=== PATIENT | female | born 1955 | race Caucasian/White ===

== ENCOUNTER 2019-03-21 13:53 | Emergency (ER) | payer BC, SELFPAY ==
[2019-03-21 14:01] VITALS: BP 153/77; PULSE 64; RESP 18; TEMP 36.3; O2SAT 97; BMI 44.6
--- NOTE | 2019-03-21 14:04 | ED.ABDPAIN ---
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 She states that she has actually had right upper quadrant pain since her 10/13 TVH/BSO done under spinal anesthesia, she wakes up with it most days and might last 30-60 minutes, then seems to resolve on its own. She tends not to have pain at other times of day, no exacerbating or alleviating features that she can think of such as what she eats the night before. She states that today is ?different?, with more of a tearing, burning pain across the midline and below the umbilicus. She states she also has radiating pain into her right flank/low back area that is more dull. She describes pain today is constant, but is worse with some movements or going over bumps in the car. She has not had any nausea or vomiting. She denies fever. She denies any bowel habit changes (chronic constipation alternating with diarrhea). She denies any new hematuria or urinary symptoms. She denies any chest pain, dyspnea, or new pain or swelling in her extremities, or other complaints on systems review. Related Data Home Medications Medication Instructions Recorded Confirmed levothyroxine 200 mcg PO QAM #0 08/22/16 03/21/19 Allergies Allergy/AdvReac Type Severity Reaction Status Date / Time clarithromycin [From BIAXIN] Allergy Mild Unverified 01/03/18 12:39 amoxicillin [From AUGMENTIN] Allergy Unknown Unverified 01/03/18 12:39 clavulanic acid Allergy Unknown Unverified 01/03/18 12:39 [From AUGMENTIN] Review of Systems <Rebecca Brothers PA-C - Last Filed: 03/21/19 20:34> Review of Systems ROS Unobtainable: All systems reviewed & are unremarkable except as noted in HPI and below PFSH <Rebecca Brothers PA-C - Last Filed: 03/21/19 20:34> Medical History (Updated 03/21/19 @ 17:25 by Rebecca Brothers PA-C) Allergy-induced asthma (Chronic) Chronic RUQ pain (Chronic) Edema of lower extremity due to peripheral venous insufficiency (Chronic) Hypothyroidism (Chronic) Incontinence (Chronic) Surgical History (Updated 03/21/19 @ 15:05 by Rebecca Brothers PA-C) History of neck surgery (Chronic) Status post NYLA-BSO (Chronic) Social History Smoking Status: Never smoker Social History Smoking Status: Never smoker Comment: rare ETOH Exam <Rebecca Brothers PA-C - Last Filed: 03/21/19 20:34> Narrative Exam Narrative: GENERAL APPEARANCE: Patient sitting comfortably, in no distress. HEENT: PERRL, EOMI, no scleral icterus, conjunctivae pink, normal oropharynx NECK: Supple, generous thyroid LUNGS: Clear to auscultation bilaterally. HEART: Rate and rhythm regular, normal S1 and S2, no S3 or S4. ABDOMEN: Soft, nondistended, bowel sounds present x 4 quadrants, no masses palpable, no hepatosplenomegaly, no CVAT. Moderate right upper quadrant tenderness and moderate tenderness across the midline. She also has some right lateral lower quadrant tenderness without guarding or rebound. Negative Sequeira sign EXTREMITIES: Trace pitting edema, no calf tenderness DERMATOLOGIC: No jaundice or exanthem NEUROLOGIC: Alert and oriented with normal speech and coordination Initial Vital Signs Initial Vital Signs: Vital Signs Temperature 97.4 F L 03/21/19 14:01 Pulse Rate 64 03/21/19 14:01 Respiratory Rate 18 03/21/19 14:01 Blood Pressure 153/77 H 03/21/19 14:01 Pulse Oximetry 97 03/21/19 14:01 <Juanita Oconnell DO - Last Filed: 03/22/19 08:19> Initial Vital Signs Initial Vital Signs: Vital Signs Temperature 97.4 F L 03/21/19 14:01 Pulse Rate 64 03/21/19 14:01 Respiratory Rate 18 03/21/19 14:01 Blood Pressure 153/77 H 03/21/19 14:01 Pulse Oximetry 97 03/21/19 14:01 Course <MARY ALICE Zhang Last Filed: 03/21/19 20:34> Additional Information: following consultation with Dr. Anderson invoice control clerk surgeon who reviewed CT scan, agrees no evidence of acute diverticulitis or perforation. Reviewed with radiology and report was addended. Reviewed findings with patient. Advised follow-up with PCP preferably tomorrow, and return if any acute changes or new symptoms such as fever or vomiting. She is agreeable. Discussed surgeon recommendation of possible further workup i.e. with HIDA scan, and encouraged to pursue with PCP for chronic pain. Orders Ordered: Discontinued Medications Diphenhydramine HCl (Benadryl) 25 mg IV NOW ONE Stop: 03/21/19 14:27 Last Admin: 03/21/19 14:50 Dose: 25 mg Sodium Chloride (Normal Saline 0.9%) 1,000 mls @ 1,000 mls/hr IV BOLUS ONE Stop: 03/21/19 15:25 Last Infusion: 03/21/19 16:30 Dose: 0 mls/hr Admin: 03/21/19 14:48 Dose: 1,000 mls/hr Vital Signs - 8 hr 03/21/19 14:01 03/21/19 15:51 03/21/19 16:33 Temperature 97.4 F L 97.4 F L Pulse Rate 64 66 75 Respiratory Rate 18 15 18 Blood Pressure 153/77 H Blood Pressure [Right Arm] 153/76 H 175/79 H Pulse Oximetry 97 100 100 <Juanita Oconnell DO - Last Filed: 03/22/19 08:19> Orders Ordered: Discontinued Medications Diphenhydramine HCl (Benadryl) 25 mg IV NOW ONE Stop: 03/21/19 14:27 Last Admin: 03/21/19 14:50 Dose: 25 mg Sodium Chloride (Normal Saline 0.9%) 1,000 mls @ 1,000 mls/hr IV BOLUS ONE Stop: 03/21/19 15:25 Last Infusion: 03/21/19 16:30 Dose: 0 mls/hr Admin: 03/21/19 14:48 Dose: 1,000 mls/hr Vital Signs - 8 hr 03/21/19 14:01 03/21/19 15:51 03/21/19 16:33 Temperature 97.4 F L 97.4 F L Pulse Rate 64 66 75 Respiratory Rate 18 15 18 Blood Pressure 153/77 H Blood Pressure [Right Arm] 153/76 H 175/79 H Pulse Oximetry 97 100 100 MDM - Abdominal Pain <Rebecca Brothers PA-C - Last Filed: 03/21/19 20:34> Lab Data Attestation: I reviewed the patient's lab results. Result diagrams: 03/21/19 14:45 03/21/19 14:45 Lab Results 03/21/19 03/21/19 03/21/19 Range/Units 14:45 14:45 14:45 WBC 10.1 (4.5-11.0) X10^3/uL RBC 4.60 (4.0-5.2) X10^6/uL Hgb 13.3 (12.0-16.0) g/dL Hct 39.4 (36-46) % MCV 85.7 (80-100) fL MCH 28.8 (26-34) PG MCHC 33.6 (30-36) % RDW 13.6 (11.6-14.8) % Plt Count 246 (150-400) X10^3/uL Neut % (Auto) 72.2 (50-75) % Lymph % (Auto) 18.4 L (25-40) % Harlan % (Auto) 6.8 (3-14) % Eos % (Auto) 2.0 (2-4) % Baso % (Auto) 0.6 (0-2) % Neut # (Auto) 7300 H (6216-0244) /uL Lymph # (Auto) 1900 (1277-5193) /uL Harlan # (Auto) 700 (0-900) /uL Eos # (Auto) 200 (0-450) /uL Baso # (Auto) 100 (0-100) /uL Sodium 145 (137-145) mmol/L Potassium 3.9 (3.4-5.1) mmol/L Chloride 106 (98-107) mmol/L Carbon Dioxide 28 (22-32) mmol/L BUN 18 H (7-17) mg/dL Creatinine 0.60 (0.52-1.04) mg/dL Estimated GFR > 60.0 (>60) mL/min BUN/Creatinine Ratio 30.0 H (6-22) Glucose 88 (80-110) mg/dL Lactate 0.7 (0.7-2.1) mmol/L Calcium 9.1 (8.4-10.2) mg/dL Total Bilirubin 0.4 (0.2-1.3) mg/dL AST 25 (14-36) IU/L ALT 30 (9-52) IU/L Alkaline Phosphatase 108 (38-126) U/L Total Protein 7.7 (6.3-8.2) g/dL Albumin 4.3 (3.5-5.0) g/dL Globulin 3.4 (1.7-4.1) g/dL Albumin/Globulin Ratio 1.3 (1.0-2.8) Lipase 66 (23-300) U/L Urine Color Urine Appearance Urine pH (4.5-8.0) Ur Specific [place] (1.000-1.035) Urine Protein (Negative) Urine Glucose (UA) (Negative) g/dL Urine Ketones (NEGATIVE) Urine Occult Blood (Negative) Urine Nitrate (Negative) Urine Bilirubin (NEGATIVE) Urine Urobilinogen (0.2) E.U./dL Ur Leukocyte Esterase (NEGATIVE) Urine RBC (0-5/HPF) Urine WBC (0-5/HPF) Ur Squamous Epith Cells (0-5/HPF) Amorphous Sediment Urine Bacteria (None) Urine Mucus (Negative) Ur Culture Indicated? 03/21/19 Range/Units 14:57 WBC (4.5-11.0) X10^3/uL RBC (4.0-5.2) X10^6/uL Hgb (12.0-16.0) g/dL Hct (36-46) % MCV (80-100) fL MCH (26-34) PG MCHC (30-36) % RDW (11.6-14.8) % Plt Count (150-400) X10^3/uL Neut % (Auto) (50-75) % Lymph % (Auto) (25-40) % Harlan % (Auto) (3-14) % Eos % (Auto) (2-4) % Baso % (Auto) (0-2) % Neut # (Auto) (8580-4974) /uL Lymph # (Auto) (2486-9809) /uL Harlan # (Auto) (0-900) /uL Eos # (Auto) (0-450) /uL Baso # (Auto) (0-100) /uL Sodium (137-145) mmol/L Potassium (3.4-5.1) mmol/L Chloride (98-107) mmol/L Carbon Dioxide (22-32) mmol/L BUN (7-17) mg/dL Creatinine (0.52-1.04) mg/dL Estimated GFR (>60) mL/min BUN/Creatinine Ratio (6-22) Glucose (80-110) mg/dL Lactate (0.7-2.1) mmol/L Calcium (8.4-10.2) mg/dL Total Bilirubin (0.2-1.3) mg/dL AST (14-36) IU/L ALT (9-52) IU/L Alkaline Phosphatase (38-126) U/L Total Protein (6.3-8.2) g/dL Albumin (3.5-5.0) g/dL Globulin (1.7-4.1) g/dL Albumin/Globulin Ratio (1.0-2.8) Lipase (23-300) U/L Urine Color Yellow Urine Appearance Clear Urine pH 6.5 (4.5-8.0) Ur Specific [place] 1.025 (1.000-1.035) Urine Protein Negative (Negative) Urine Glucose (UA) Negative (Negative) g/dL Urine Ketones Negative (NEGATIVE) Urine Occult Blood Negative (Negative) Urine Nitrate Negative (Negative) Urine Bilirubin Negative (NEGATIVE) Urine Urobilinogen 0.2 (0.2) E.U./dL Ur Leukocyte Esterase Negative (NEGATIVE) Urine RBC None seen (0-5/HPF) Urine WBC 1-5/hpf (0-5/HPF) Ur Squamous Epith Cells 5-10 /hpf H (0-5/HPF) Amorphous Sediment 1+ Urine Bacteria Few (2-10) H (None) Urine Mucus 1+ H (Negative) Ur Culture Indicated? Cult not indicated Imaging Data CT scan - abdomen: Radiologist's impression: [address] [address] [address] Scan Report Signed Patient: Jory Isaacs LMR#: [id number] : 3Acct:[id number] Age/Sex: 63 / FDate of Service: 03/21/19 Loc: ED Accession Number: [id number] Procedure: CT abdomen pelvis w con Ordering Provider: Rebecca Brothers P.A-C PROCEDURE: CT ABDOMEN PELVIS W CON INDICATIONS: R. flank,midline pain TECHNIQUE: After the administration of intravenous contrast, 5 mm thick sections acquired from the diaphragm to the symphysis. 5 mm coronal and sagittal reformats were acquired. For radiation dose reduction, the following was used: automated exposure control, adjustment of mA and/or kV according to patient size. COMPARISON: None. FINDINGS: Image quality: Excellent. ABDOMEN: Lung bases: Atelectasis noted in the dependent portion of the lungs. 7 mm subpleural nodule noted in the right lung base. Right lung base nodule has a flattened margin where it abuts the right lung fissure. 5 mm calcified granuloma noted in the left lung base. Heart size is normal. Solid organs: Liver is normal in size and enhancement. Gallbladder is within normal limits. Biliary system is non dilated. Pancreas enhances normally. Spleen is normal in size and enhancement. No adrenal nodules. Kidneys demonstrate normal size and enhancement, without hydronephrosis. Peritoneum and bowel: Bowel loops demonstrate normal wall thickness and caliber. Scattered diverticuli noted in the left and sigmoid colon. Mild inflammatory changes noted adjacent to diverticuli in the distal left colon compatible with diverticulitis. No peridiverticular abscess. Small locule of free air are noted adjacent to the distal left colon the region of diverticulitis. The appendix is not definitely visualized, however no free fluid or inflammatory changes are noted adjacent to the cecum. Nodes and vessels: No retroperitoneal or mesenteric adenopathy by size criteria. Aorta and inferior vena cava are normal in size. Miscellaneous: Small fat-containing umbilical hernia. PELVIS: Genitourinary: Bladder wall thickness is normal. Uterus is surgically absent. Miscellaneous: No inguinal hernias or adenopathy. Bones: No suspicious bony lesions. No vertebral body compression fractures. IMPRESSION: 1. Distal left colon diverticulitis. Small free air locule is noted in the region of diverticulitis compatible with diverticular microperforation. 2. No renal stone or hydronephrosis. 3. No dilated loops of bowel. 4. No free intraperitoneal fluid. 5. 7 mm nodule in the right lung base which has imaging characteristics most compatible with perifissural lymph node. Dictated by: Serina Niño MD, PhD on 03/21/2019 at 15:58 Approved by: Serina Niño MD, PhD on 03/21/2019 at 16:09 <Juanita Oconnell DO - Last Filed: 03/22/19 08:19> Lab Data Lab Results 03/21/19 03/21/19 03/21/19 Range/Units 14:45 14:45 14:45 WBC 10.1 (4.5-11.0) X10^3/uL RBC 4.60 (4.0-5.2) X10^6/uL Hgb 13.3 (12.0-16.0) g/dL Hct 39.4 (36-46) % MCV 85.7 (80-100) fL MCH 28.8 (26-34) PG MCHC 33.6 (30-36) % RDW 13.6 (11.6-14.8) % Plt Count 246 (150-400) X10^3/uL Neut % (Auto) 72.2 (50-75) % Lymph % (Auto) 18.4 L (25-40) % Harlan % (Auto) 6.8 (3-14) % Eos % (Auto) 2.0 (2-4) % Baso % (Auto) 0.6 (0-2) % Neut # (Auto) 7300 H (0394-5554) /uL Lymph # (Auto) 1900 (9694-6897) /uL Harlan # (Auto) 700 (0-900) /uL Eos # (Auto) 200 (0-450) /uL Baso # (Auto) 100 (0-100) /uL Sodium 145 (137-145) mmol/L Potassium 3.9 (3.4-5.1) mmol/L Chloride 106 (98-107) mmol/L Carbon Dioxide 28 (22-32) mmol/L BUN 18 H (7-17) mg/dL Creatinine 0.60 (0.52-1.04) mg/dL Estimated GFR > 60.0 (>60) mL/min BUN/Creatinine Ratio 30.0 H (6-22) Glucose 88 (80-110) mg/dL Lactate 0.7 (0.7-2.1) mmol/L Calcium 9.1 (8.4-10.2) mg/dL Total Bilirubin 0.4 (0.2-1.3) mg/dL AST 25 (14-36) IU/L ALT 30 (9-52) IU/L Alkaline Phosphatase 108 (38-126) U/L Total Protein 7.7 (6.3-8.2) g/dL Albumin 4.3 (3.5-5.0) g/dL Globulin 3.4 (1.7-4.1) g/dL Albumin/Globulin Ratio 1.3 (1.0-2.8) Lipase 66 (23-300) U/L Urine Color Urine Appearance Urine pH (4.5-8.0) Ur Specific [place] (1.000-1.035) Urine Protein (Negative) Urine Glucose (UA) (Negative) g/dL Urine Ketones (NEGATIVE) Urine Occult Blood (Negative) Urine Nitrate (Negative) Urine Bilirubin (NEGATIVE) Urine Urobilinogen (0.2) E.U./dL Ur Leukocyte Esterase (NEGATIVE) Urine RBC (0-5/HPF) Urine WBC (0-5/HPF) Ur Squamous Epith Cells (0-5/HPF) Amorphous Sediment Urine Bacteria (None) Urine Mucus (Negative) Ur Culture Indicated? 03/21/19 Range/Units 14:57 WBC (4.5-11.0) X10^3/uL RBC (4.0-5.2) X10^6/uL Hgb (12.0-16.0) g/dL Hct (36-46) % MCV (80-100) fL MCH (26-34) PG MCHC (30-36) % RDW (11.6-14.8) % Plt Count (150-400) X10^3/uL Neut % (Auto) (50-75) % Lymph % (Auto) (25-40) % Harlan % (Auto) (3-14) % Eos % (Auto) (2-4) % Baso % (Auto) (0-2) % Neut # (Auto) (7323-3052) /uL Lymph # (Auto) (0193-9810) /uL Harlan # (Auto) (0-900) /uL Eos # (Auto) (0-450) /uL Baso # (Auto) (0-100) /uL Sodium (137-145) mmol/L Potassium (3.4-5.1) mmol/L Chloride (98-107) mmol/L Carbon Dioxide (22-32) mmol/L BUN (7-17) mg/dL Creatinine (0.52-1.04) mg/dL Estimated GFR (>60) mL/min BUN/Creatinine Ratio (6-22) Glucose (80-110) mg/dL Lactate (0.7-2.1) mmol/L Calcium (8.4-10.2) mg/dL Total Bilirubin (0.2-1.3) mg/dL AST (14-36) IU/L ALT (9-52) IU/L Alkaline Phosphatase (38-126) U/L Total Protein (6.3-8.2) g/dL Albumin (3.5-5.0) g/dL Globulin (1.7-4.1) g/dL Albumin/Globulin Ratio (1.0-2.8) Lipase (23-300) U/L Urine Color Yellow Urine Appearance Clear Urine pH 6.5 (4.5-8.0) Ur Specific [place] 1.025 (1.000-1.035) Urine Protein Negative (Negative) Urine Glucose (UA) Negative (Negative) g/dL Urine Ketones Negative (NEGATIVE) Urine Occult Blood Negative (Negative) Urine Nitrate Negative (Negative) Urine Bilirubin Negative (NEGATIVE) Urine Urobilinogen 0.2 (0.2) E.U./dL Ur Leukocyte Esterase Negative (NEGATIVE) Urine RBC None seen (0-5/HPF) Urine WBC 1-5/hpf (0-5/HPF) Ur Squamous Epith Cells 5-10 /hpf H (0-5/HPF) Amorphous Sediment 1+ Urine Bacteria Few (2-10) H (None) Urine Mucus 1+ H (Negative) Ur Culture Indicated? Cult not indicated Discharge Plan Departure Patient Disposition: Home Clinical Impression: Right sided abdominal pain Discharge Date/Time: 03/21/19 17:43 Interventions: ED Discharge Assessment Last Done: 03/21/19 17:43 Instructions: DI for Abdominal Pain-Adult Activity Restrictions/Additional Instructions: There was no acute problem found on your lab testing or scan today to explain your chronic pain or the changes in it that you have observed today. Please schedule follow-up with your PCP to reassess (preferably tomorrow), and also to discuss further workup for your chronic pain. Please return to ED as we talked about if you have any acutely worsening pain or new symptoms such as vomiting or fever. Please try ibuprofen at least for the next day or 2 to see if this is helpful. Prescriptions: No Action levothyroxine 200 MCG tablet 200 mcg PO QAM Qty: 0 RF: 0 Referrals: Mehul Grayson DO [Non-Staff] - <Juanita Oconnell DO - Last Filed: 03/22/19 08:19> Cosign ED Attending Burton Attestation: I was immediately available in the department for consultation. Documentation has been reviewed. I agree with assessment and plan.
--- NOTE | 2019-03-21 14:26 | DI.CT.S_ITS ---
PROCEDURE: CT ABDOMEN PELVIS W CON INDICATIONS: R. flank,midline pain TECHNIQUE: After the administration of intravenous contrast, 5 mm thick sections acquired from the diaphragm to the symphysis. 5 mm coronal and sagittal reformats were acquired. For radiation dose reduction, the following was used: automated exposure control, adjustment of mA and/or kV according to patient size. COMPARISON: None. FINDINGS: Image quality: Excellent. ABDOMEN: Lung bases: Atelectasis noted in the dependent portion of the lungs. 7 mm subpleural nodule noted in the right lung base. Right lung base nodule has a flattened margin where it abuts the right lung fissure. 5 mm calcified granuloma noted in the left lung base. Heart size is normal. Solid organs: Liver is normal in size and enhancement. Gallbladder is within normal limits. Biliary system is non dilated. Pancreas enhances normally. Spleen is normal in size and enhancement. No adrenal nodules. Kidneys demonstrate normal size and enhancement, without hydronephrosis. Peritoneum and bowel: Bowel loops demonstrate normal wall thickness and caliber. Scattered diverticuli noted in the left and sigmoid colon. Mild inflammatory changes noted adjacent to diverticuli in the distal left colon compatible with diverticulitis. No peridiverticular abscess. Small locule of free air are noted adjacent to the distal left colon the region of diverticulitis. The appendix is not definitely visualized, however no free fluid or inflammatory changes are noted adjacent to the cecum. Nodes and vessels: No retroperitoneal or mesenteric adenopathy by size criteria. Aorta and inferior vena cava are normal in size. Miscellaneous: Small fat-containing umbilical hernia. PELVIS: Genitourinary: Bladder wall thickness is normal. Uterus is surgically absent. Miscellaneous: No inguinal hernias or adenopathy. Bones: No suspicious bony lesions. No vertebral body compression fractures. IMPRESSION: 1. Distal left colon diverticulitis. Small free air locule is noted in the region of diverticulitis compatible with diverticular microperforation. 2. No renal stone or hydronephrosis. 3. No dilated loops of bowel. 4. No free intraperitoneal fluid. 5. 7 mm nodule in the right lung base which has imaging characteristics most compatible with perifissural lymph node. Dictated by: Serina Niño MD, PhD on 03/21/2019 at 15:58 Approved by: Serina Niño MD, PhD on 03/21/2019 at 16:09
[2019-03-21] MEDS: SODIUM CHLORIDE 0.9% 1,000 ML 1000 ML IV (14:48)
[2019-03-21] MEDS: diphenhydrAMINE 50 MG/ML VIAL 25 MG IV (14:50)
--- NOTE | 2019-03-21 14:51 | ED_ITS ---
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 She states that she has actually had right upper quadrant pain since her 10/13 TVH/BSO done under spinal anesthesia, she wakes up with it most days and might last 30-60 minutes, then seems to resolve on its own. She tends not to have pain at other times of day, no exacerbating or alleviating features that she can think of such as what she eats the night before. She states that today is ?different?, with more of a tearing, burning pain across the midline and below the umbilicus. She states she also has radiating pain into her right flank/low back area that is more dull. She describes pain today is constant, but is worse with some movements or going over bumps in the car. She has not had any nausea or vomiting. She denies fever. She denies any bowel habit changes (chronic constipation alternating with diarrhea). She denies any new hematuria or urinary symptoms. She denies any chest pain, dyspnea, or new pain or swelling in her extremities, or other complaints on systems review. Related Data Home Medications Medication Instructions Recorded Confirmed levothyroxine 200 mcg PO QAM #0 08/22/16 03/21/19 Allergies Allergy/AdvReac Type Severity Reaction Status Date / Time clarithromycin [From BIAXIN] Allergy Mild Unverified 01/03/18 12:39 amoxicillin [From AUGMENTIN] Allergy Unknown Unverified 01/03/18 12:39 clavulanic acid Allergy Unknown Unverified 01/03/18 12:39 [From AUGMENTIN] Review of Systems <Rebecca Brothers PA-C - Last Filed: 03/21/19 20:34> Review of Systems ROS Unobtainable: All systems reviewed & are unremarkable except as noted in HPI and below PFSH <Rebecca Brothers PA-C - Last Filed: 03/21/19 20:34> Medical History (Updated 03/21/19 @ 17:25 by Rebecca Brothers PA-C) Allergy-induced asthma (Chronic) Chronic RUQ pain (Chronic) Edema of lower extremity due to peripheral venous insufficiency (Chronic) Hypothyroidism (Chronic) Incontinence (Chronic) Surgical History (Updated 03/21/19 @ 15:05 by Rebecca Brothers PA-C) History of neck surgery (Chronic) Status post NYLA-BSO (Chronic) Social History Smoking Status: Never smoker Social History Smoking Status: Never smoker Comment: rare ETOH Exam <Rebecca Brothers PA-C - Last Filed: 03/21/19 20:34> Narrative Exam Narrative: GENERAL APPEARANCE: Patient sitting comfortably, in no distress. HEENT: PERRL, EOMI, no scleral icterus, conjunctivae pink, normal oropharynx NECK: Supple, generous thyroid LUNGS: Clear to auscultation bilaterally. HEART: Rate and rhythm regular, normal S1 and S2, no S3 or S4. ABDOMEN: Soft, nondistended, bowel sounds present x 4 quadrants, no masses palpable, no hepatosplenomegaly, no CVAT. Moderate right upper quadrant tenderness and moderate tenderness across the midline. She also has some right lateral lower quadrant tenderness without guarding or rebound. Negative [place] sign EXTREMITIES: Trace pitting edema, no calf tenderness DERMATOLOGIC: No jaundice or exanthem NEUROLOGIC: Alert and oriented with normal speech and coordination Initial Vital Signs Initial Vital Signs: Vital Signs Temperature 97.4 F L 03/21/19 14:01 Pulse Rate 64 03/21/19 14:01 Respiratory Rate 18 03/21/19 14:01 Blood Pressure 153/77 H 03/21/19 14:01 Pulse Oximetry 97 03/21/19 14:01 <Juanita Oconnell DO - Last Filed: 03/22/19 08:19> Initial Vital Signs Initial Vital Signs: Vital Signs Temperature 97.4 F L 03/21/19 14:01 Pulse Rate 64 03/21/19 14:01 Respiratory Rate 18 03/21/19 14:01 Blood Pressure 153/77 H 03/21/19 14:01 Pulse Oximetry 97 03/21/19 14:01 Course <MARY ALICE Zhang Last Filed: 03/21/19 20:34> Additional Information: following consultation with Dr. Anderson comfort station supervisor surgeon who reviewed CT scan, agrees no evidence of acute diverticulitis or perforation. Reviewed with radiology and report was addended. Reviewed findings with patient. Advised follow-up with PCP preferably tomorrow, and return if any acute changes or new symptoms such as fever or vomiting. She is agreeable. Discussed surgeon recommendation of possible further workup i.e. w ith HIDA scan, and encouraged to pursue with PCP for chronic pain. Orders Ordered: Discontinued Medications Diphenhydramine HCl (Benadryl) 25 mg IV NOW ONE Stop: 03/21/19 14:27 Last Admin: 03/21/19 14:50 Dose: 25 mg Sodium Chloride (Normal Saline 0.9%) 1,000 mls @ 1,000 mls/hr IV BOLUS ONE Stop: 03/21/19 15:25 Last Infusion: 03/21/19 16:30 Dose: 0 mls/hr Admin: 03/21/19 14:48 Dose: 1,000 mls/hr Vital Signs - 8 hr 03/21/19 14:01 03/21/19 15:51 03/21/19 16:33 Temperature 97.4 F L 97.4 F L Pulse Rate 64 66 75 Respiratory Rate 18 15 18 Blood Pressure 153/77 H Blood Pressure [Right Arm] 153/76 H 175/79 H Pulse Oximetry 97 100 100 <Juanita Oconnell DO - Last Filed: 03/22/19 08:19> Orders Ordered: Discontinued Medications Diphenhydramine HCl (Benadryl) 25 mg IV NOW ONE Stop: 03/21/19 14:27 Last Admin: 03/21/19 14:50 Dose: 25 mg Sodium Chloride (Normal Saline 0.9%) 1,000 mls @ 1,000 mls/hr IV BOLUS ONE Stop: 03/21/19 15:25 Last Infusion: 03/21/19 16:30 Dose: 0 mls/hr Admin: 03/21/19 14:48 Dose: 1,000 mls/hr Vital Signs - 8 hr 03/21/19 14:01 03/21/19 15:51 03/21/19 16:33 Temperature 97.4 F L 97.4 F L Pulse Rate 64 66 75 Respiratory Rate 18 15 18 Blood Pressure 153/77 H Blood Pressure [Right Arm] 153/76 H 175/79 H Pulse Oximetry 97 100 100 MDM - Abdominal Pain <Rebecca Brothers PA-C - Last Filed: 03/21/19 20:34> Lab Data Attestation: I reviewed the patient's lab results. Result diagrams: 03/21/19 14:45 03/21/19 14:45 Lab Results 03/21/19 03/21/19 03/21/19 Range/Units 14:45 14:45 14:45 WBC 10.1 (4.5-11.0) X10^3/uL RBC 4.60 (4.0-5.2) X10^6/uL Hgb 13.3 (12.0-16.0) g/dL Hct 39.4 (36-46) % MCV 85.7 (80-100) fL MCH 28.8 (26-34) PG MCHC 33.6 (30-36) % RDW 13.6 (11.6-14.8) % Plt Count 246 (150-400) X10^3/uL Neut % (Auto) 72.2 (50-75) % Lymph % (Auto) 18.4 L (25-40) % [place] % (Auto) 6.8 (3-14) % Eos % (Auto) 2.0 (2-4) % Baso % (Auto) 0.6 (0-2) % Neut # (Auto) 7300 H (7606-8600) /uL Lymph # (Auto) 1900 (0058-4259) /uL [place] # (Auto) 700 (0-900) /uL Eos # (Auto) 200 (0-450) /uL Baso # (Auto) 100 (0-100) /uL Sodium 145 (137-145) mmol/L Potassium 3.9 (3.4-5.1) mmol/L Chloride 106 (98-107) mmol/L Carbon Dioxide 28 (22-32) mmol/L BUN 18 H (7-17) mg/dL Creatinine 0.60 (0.52-1.04) mg/dL Estimated GFR > 60.0 (>60) mL/min BUN/Creatinine Ratio 30.0 H (6-22) Glucose 88 (80-110) mg/dL Lactate 0.7 (0.7-2.1) mmol/L Calcium 9.1 (8.4-10.2) mg/dL Total Bilirubin 0.4 (0.2-1.3) mg/dL AST 25 (14-36) IU/L ALT 30 (9-52) IU/L Alkaline Phosphatase 108 (38-126) U/L Total Protein 7.7 (6.3-8.2) g/dL Albumin 4.3 (3.5-5.0) g/dL Globulin 3.4 (1.7-4.1) g/dL Albumin/Globulin Ratio 1.3 (1.0-2.8) Lipase 66 (23-300) U/L Urine Color Urine Appearance Urine pH (4.5-8.0) Ur Specific [place] (1.000-1.035) Urine Protein (Negative) Urine Glucose (UA) (Negative) g/dL Urine Ketones (NEGATIVE) Urine Occult Blood (Negative) Urine Nitrate (Negative) Urine Bilirubin (NEGATIVE) Urine Urobilinogen (0.2) E.U./dL Ur Leukocyte Esterase (NEGATIVE) Urine RBC (0-5/HPF) Urine WBC (0-5/HPF) Ur Squamous Epith Cells (0-5/HPF) Amorphous Sediment Urine Bacteria (None) Urine Mucus (Negative) Ur Culture Indicated? 03/21/19 Range/Units 14:57 WBC (4.5-11.0) X10^3/uL RBC (4.0-5.2) X10^6/uL Hgb (12.0-16.0) g/dL Hct (36-46) % MCV (80-100) fL MCH (26-34) PG MCHC (30-36) % RDW (11.6-14.8) % Plt Count (150-400) X10^3/uL Neut % (Auto) (50-75) % Lymph % (Auto) (25-40) % [place] % (Auto) (3-14) % Eos % (Auto) (2-4) % Baso % (Auto) (0-2) % Neut # (Auto) (0433-1473) /uL Lymph # (Auto) (2960-2758) /uL [place] # (Auto) (0-900) /uL Eos # (Auto) (0-450) /uL Baso # (Auto) (0-100) /uL Sodium (137-145) mmol/L Potassium (3.4-5.1) mmol/L Chloride (98-107) mmol/L Carbon Dioxide (22-32) mmol/L BUN (7-17) mg/dL Creatinine (0.52-1.04) mg/dL Estimated GFR (>60) mL/min BUN/Creatinine Ratio (6-22) Glucose (80-110) mg/dL Lactate (0.7-2.1) mmol/L Calcium (8.4-10.2) mg/dL Total Bilirubin (0.2-1.3) mg/dL AST (14-36) IU/L ALT (9-52) IU/L Alkaline Phosphatase (38-126) U/L Total Protein (6.3-8.2) g/dL Albumin (3.5-5.0) g/dL Globulin (1.7-4.1) g/dL Albumin/Globulin Ratio (1.0-2.8) Lipase (23-300) U/L Urine Color Yellow Urine Appearance Clear Urine pH 6.5 (4.5-8.0) Ur Specific [place] 1.025 (1.000-1.035) Urine Protein Negative (Negative) Urine Glucose (UA) Negative (Negative) g/dL Urine Ketones Negative (NEGATIVE) Urine Occult Blood Negative (Negative) Urine Nitrate Negative (Negative) Urine Bilirubin Negative (NEGATIVE) Urine Urobilinogen 0.2 (0.2) E.U./dL Ur Leukocyte Esterase Negative (NEGATIVE) Urine RBC None seen (0-5/HPF) Urine WBC 1-5/hpf (0-5/HPF) Ur Squamous Epith Cells 5-10 /hpf H (0-5/HPF) Amorphous Sediment 1+ Urine Bacteria Few (2-10) H (None) Urine Mucus 1+ H (Negative) Ur Culture Indicated? Cult not indicated Imaging Data CT scan - abdomen: Radiologist's impression: [address] [address] [address] Scan Report Signed Patient: Jory Isaacs LMR#: [id number] : 3Acct:[id number] Age/Sex: 63 / FDate of Service: 03/21/19 Loc: ED Accession Number: [id number] Procedure: CT abdomen pelvis w con Ordering Provider: Rebecca Brothers P.A-C PROCEDURE: CT ABDOMEN PELVIS W CON INDICATIONS: R. flank,midline pain TECHNIQUE: After the administration of intravenous contrast, 5 mm thick sections acquired from the diaphragm to the symphysis. 5 mm coronal and sagittal reformats were acquired. For radiation dose reduction, the following was used: automated exposure control, adjustment of mA and/or kV according to patient size. COMPARISON: None. FINDINGS: Image quality: Excellent. ABDOMEN: Lung bases: Atelectasis noted in the dependent portion of the lungs. 7 mm subpleural nodule noted in the right lung base. Right lung base nodule has a flattened margin where it abuts the right lung fissure. 5 mm calcified granuloma noted in the left lung base. Heart size is normal. Solid organs: Liver is normal in size and enhancement. Gallbladder is within normal limits. Biliary system is non dilated. Pancreas enhances normally. Spleen is normal in size and enhancement. No adrenal nodules. Kidneys demonstrate normal size and enhancement, without hydronephrosis. Peritoneum and bowel: Bowel loops demonstrate normal wall thickness and caliber. Scattered diverticuli noted in the left and sigmoid colon. Mild inflammatory changes noted adjacent to diverticuli in the distal left colon compatible with diverticulitis. No peridiverticular abscess. Small locule of free air are noted adjacent to the distal left colon the region of diverticulitis. The appendix is not definitely visualized, however no free fluid or inflammatory changes are noted adjacent to the cecum. Nodes and vessels: No retroperitoneal or mesenteric adenopathy by size criteria. Aorta and inferior vena cava are normal in size. Miscellaneous: Small fat-containing umbilical hernia. PELVIS: Genitourinary: Bladder wall thickness is normal. Uterus is surgically absent. Miscellaneous: No inguinal hernias or adenopathy. Bones: No suspicious bony lesions. No vertebral body compression fractures. IMPRESSION: 1. Distal left colon diverticulitis. Small free air locule is noted in the region of diverticulitis compatible with diverticular microperforation. 2. No renal stone or hydronephrosis. 3. No dilated loops of bowel. 4. No free intraperitoneal fluid. 5. 7 mm nodule in the right lung base which has imaging characteristics most compatible with perifissural lymph node. Dictated by: Serina Niño MD, PhD on 03/21/2019 at 15:58 Approved by: Serina Niño MD, PhD on 03/21/2019 at 16:09 <Juanita Oconnell, - Last Filed: 03/22/19 08:19> Lab Data Lab Results 03/21/19 03/21/19 03/21/19 Range/Units 14:45 14:45 14:45 WBC 10.1 (4.5-11.0) X10^3/uL RBC 4.60 (4.0-5.2) X10^6/uL Hgb 13.3 (12.0-16.0) g/dL Hct 39.4 (36-46) % MCV 85.7 (80-100) fL MCH 28.8 (26-34) PG MCHC 33.6 (30-36) % RDW 13.6 (11.6-14.8) % Plt Count 246 (150-400) X10^3/uL Neut % (Auto) 72.2 (50-75) % Lymph % (Auto) 18.4 L (25-40) % [place] % (Auto) 6.8 (3-14) % Eos % (Auto) 2.0 (2-4) % Baso % (Auto) 0.6 (0-2) % Neut # (Auto) 7300 H (9951-0844) /uL Lymph # (Auto) 1900 (5408-4984) /uL [place] # (Auto) 700 (0-900) /uL Eos # (Auto) 200 (0-450) /uL Baso # (Auto) 100 (0-100) /uL Sodium 145 (137-145) mmol/L Potassium 3.9 (3.4-5.1) mmol/L Chloride 106 (98-107) mmol/L Carbon Dioxide 28 (22-32) mmol/L BUN 18 H (7-17) mg/dL Creatinine 0.60 (0.52-1.04) mg/dL Estimated GFR > 60.0 (>60) mL/min BUN/Creatinine Ratio 30.0 H (6-22) Glucose 88 (80-110) mg/dL Lactate 0.7 (0.7-2.1) mmol/L Calcium 9.1 (8.4-10.2) mg/dL Total Bilirubin 0.4 (0.2-1.3) mg/dL AST 25 (14-36) IU/L ALT 30 (9-52) IU/L Alkaline Phosphatase 108 (38-126) U/L Total Protein 7.7 (6.3-8.2) g/dL Albumin 4.3 (3.5-5.0) g/dL Globulin 3.4 (1.7-4.1) g/dL Albumin/Globulin Ratio 1.3 (1.0-2.8) Lipase 66 (23-300) U/L Urine Color Urine Appearance Urine pH (4.5-8.0) Ur Specific [place] (1.000-1.035) Urine Protein (Negative) Urine Glucose (UA) (Negative) g/dL Urine Ketones (NEGATIVE) Urine Occult Blood (Negative) Urine Nitrate (Negative) Urine Bilirubin (NEGATIVE) Urine Urobilinogen (0.2) E.U./dL Ur Leukocyte Esterase (NEGATIVE) Urine RBC (0-5/HPF) Urine WBC (0-5/HPF) Ur Squamous Epith Cells (0-5/HPF) Amorphous Sediment Urine Bacteria (None) Urine Mucus (Negative) Ur Culture Indicated? 03/21/19 Range/Units 14:57 WBC (4.5-11.0) X10^3/uL RBC (4.0-5.2) X10^6/uL Hgb (12.0-16.0) g/dL Hct (36-46) % MCV (80-100) fL MCH (26-34) PG MCHC (30-36) % RDW (11.6-14.8) % Plt Count (150-400) X10^3/uL Neut % (Auto) (50-75) % Lymph % (Auto) (25-40) % [place] % (Auto) (3-14) % Eos % (Auto) (2-4) % Baso % (Auto) (0-2) % Neut # (Auto) (8354-6293) /uL Lymph # (Auto) (1116-0373) /uL [place] # (Auto) (0-900) /uL Eos # (Auto) (0-450) /uL Baso # (Auto) (0-100) /uL Sodium (137-145) mmol/L Potassium (3.4-5.1) mmol/L Chloride (98-107) mmol/L Carbon Dioxide (22-32) mmol/L BUN (7-17) mg/dL Creatinine (0.52-1.04) mg/dL Estimated GFR (>60) mL/min BUN/Creatinine Ratio (6-22) Glucose (80-110) mg/dL Lactate (0.7-2.1) mmol/L Calcium (8.4-10.2) mg/dL Total Bilirubin (0.2-1.3) mg/dL AST (14-36) IU/L ALT (9-52) IU/L Alkaline Phosphatase (38-126) U/L Total Protein (6.3-8.2) g/dL Albumin (3.5-5.0) g/dL Globulin (1.7-4.1) g/dL Albumin/Globulin Ratio (1.0-2.8) Lipase (23-300) U/L Urine Color Yellow Urine Appearance Clear Urine pH 6.5 (4.5-8.0) Ur Specific [place] 1.025 (1.000-1.035) Urine Protein Negative (Negative) Urine Glucose (UA) Negative (Negative) g/dL Urine Ketones Negative (NEGATIVE) Urine Occult Blood Negative (Negative) Urine Nitrate Negative (Negative) Urine Bilirubin Negative (NEGATIVE) Urine Urobilinogen 0.2 (0.2) E.U./dL Ur Leukocyte Esterase Negative (NEGATIVE) Urine RBC None seen (0-5/HPF) Urine WBC 1-5/hpf (0-5/HPF) Ur Squamous Epith Cells 5-10 /hpf H (0-5/HPF) Amorphous Sediment 1+ Urine Bacteria Few (2-10) H (None) Urine Mucus 1+ H (Negative) Ur Culture Indicated? Cult not indicated Discharge Plan Departure Patient Disposition: Home Clinical Impression: Right sided abdominal pain Discharge Date/Time: 03/21/19 17:43 Interventions: ED Discharge Assessment Last Done: 03/21/19 17:43 Instructions: DI for Abdominal Pain-Adult Activity Restrictions/Additional Instructions: There was no acute problem found on your lab testing or scan today to explain your chronic pain or the changes in it that you have observed today. Please schedule follow-up with your PCP to reassess (preferably tomorrow), and also to discuss further workup for your chronic pain. Please return to ED as we talked about if you have any acutely worsening pain or new symptoms such as vomiting or fever. Please try ibuprofen at least for the next day or 2 to see if this is helpful. Prescriptions: No Action levothyroxine 200 MCG tablet 200 mcg PO QAM Qty: 0 RF: 0 Referrals: Mehul Grayson DO [Non-Staff] - <Juanita Oconnell DO - Last Filed: 03/22/19 08:19> Cosign ED Attending Frankyature Attestation: I was immediately available in the department for consultation. Documentation has been reviewed. I agree with assessment and plan.
[2019-03-21 14:56] LABS: Add Manual Diff / Slide Review NO; Basophils Absolute Auto 100 /uL (0-100); Basophils Percent Auto 0.6 % (0-2); Eosinophils Absolute Auto 200 /uL (0-450); Hematocrit 39.4 % (36-46); Hemoglobin 13.3 g/dL (12.0-16.0); Lymphocytes Absolute Auto 1900 /uL (1100-4500); Lymphocytes Percent Auto 18.4 % (25-40); Mean Corpuscular HGB Conc 33.6 % (30-36); Mean Corpuscular Hemoglobin 28.8 PG (26-34); Mean Corpuscular Volume 85.7 fL (80-100); Monocytes Absolute Auto 700 /uL (0-900); Monocytes Percent Auto 6.8 % (3-14); Neutrophils Absolute Auto 7300 /uL (1500-7000); Neutrophils Percent Auto 72.2 % (50-75); Platelet Count 246 X10^3/uL (150-400); Red Cell Distribution Width 13.6 % (11.6-14.8); White Blood Cell Count 10.1 X10^3/uL (4.5-11.0)
[2019-03-21 14:58] LABS: RBC Urine None Seen (0-5/HPF)
[2019-03-21 14:59] LABS: Appearance Urine UA CLEAR; Bilirubin Urine UA NEGATIVE (NEGATIVE); Color Urine UA YELLOW; Glucose Urine UA NEGATIVE (Negative); Ketones Urine UA NEGATIVE (NEGATIVE); Leukocyte Esterase Urine UA NEGATIVE (NEGATIVE); Nitrite Urine UA NEGATIVE (Negative); Occult Blood Urine UA NEGATIVE (Negative); Protein Urine UA NEGATIVE (Negative); Specific Gravity Urine UA 1.025 (1.000-1.035); Urobilinogen Urine UA 0.2 E.U./dL (0.2); pH Urine UA 6.5 (4.5-8.0)
[2019-03-21 15:06] LABS: Lactate (Lactic Acid) 0.7 mmol/L (0.7-2.1)
[2019-03-21 15:07] LABS: Alanine Aminotransferase 30 IU/L (9-52); Albumin 4.3 g/dL (3.5-5.0); Albumin Globulin Ratio 1.3 (1.0-2.8); Alkaline Phosphatase 108 U/L (38-126); Aspartate Aminotransferase 25 IU/L (14-36); Bilirubin Total 0.4 mg/dL (0.2-1.3); Blood Urea Nitrogen 18 mg/dL (7-17); Calcium 9.1 mg/dL (8.4-10.2); Carbon Dioxide 28 mmol/L (22-32); Chloride 106 mmol/L (98-107); Estimated Glomerular Filt Rate > 60.0 mL/min (>60); Globulin 3.4 g/dL (1.7-4.1); Glucose 88 mg/dL (80-110); HEMOLYSIS < 15 (0-50); Lipase 66 U/L (23-300); Potassium 3.9 mmol/L (3.4-5.1); Sodium 145 mmol/L (137-145); Total Protein 7.7 g/dL (6.3-8.2)
[2019-03-21 15:10] LABS: Amorphous Sediment Urine 1+; Bacteria Urine Few (2-10); Culture Indicated Urine Cult Not Indicated; Mucus Urine 1+ (Negative); Squamous Epithelial Cell Urine 5-10 /HPF (0-5/HPF); WBC Urine 1-5/HPF (0-5/HPF)
--- NOTE | 2019-03-21 15:23 | PC.NURSE ---
pt refused to get into a gown. explained the importance of getting into a gown for the CT Scan and a medical evaluation. 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 Rn Sathish and Nani were also told the same thing. Provider, Rebecca stewart. i did explain that we have various sizes of gowns. she still refused
[2019-03-21 15:51] VITALS: BP 153/76; PULSE 66; RESP 15; O2SAT 100
[2019-03-21 16:33] VITALS: BP 175/79; PULSE 75; RESP 18; TEMP 36.3; O2SAT 100
== END 2019-03-21 17:43 | disposition home or self-care (01) ==
PROVIDERS: Emergency Provider Internal Medicine
DX: R10.9 Unspecified abdominal pain (principal)
CPT/HCPCS: 36591; 74177; 80053; 81001; 83605; 83690; 85025; 96361; 96374; 99283; 99284; J1200; Q9967

== ENCOUNTER → 2021-08-25 15:59 | Outpatient (CLI) | payer MEDICARE, BC, SELFPAY ==
[2021-08-25 18:19] LABS: COVID19 -Nasal RAPID Negative (Negative)
== END ==
PROVIDERS: Referring Provider Physician Assistant; Visit Provider Physician Assistant
DX: R05.9 Cough, unspecified (principal); R09.81 Nasal congestion
CPT/HCPCS: 87635

== ENCOUNTER → 2022-01-27 12:33 | Outpatient (CLI) | payer MEDICARE, BC, SELFPAY ==
--- NOTE | 2022-01-27 | DI.US.S_ITS ---
ULTRASOUND OF LEFT BREAST AND AXILLA: 01/27/2022 CLINICAL: Patient returns today to evaluate an asymmetry in the left breast. Comparison is made to exams dated: 01/27/2022 mammogram - [facility] and 12/06/2021 mammogram - [facility]. Color flow and real-time ultrasound of the left breast axilla were performed. Nettles scale images of the real-time examination were reviewed. There is a possible 1.2 cm x 0.5 cm x 1 cm wider than tall mass in the left breast at 12 o'clock middle depth 4 cm from the nipple. This mass is heterogeneously hypoechoic. This correlates smaller than estimated on mammography. There are multiple calcifications within the mass. Color flow imaging demonstrates that there is no vascularity present. There also is a normal appearing lymph node in the left breast at 3 o'clock posterior depth. This normal lymph node is hypoechoic with fatty hilum and correlates with mammographic finding of an incidental intramammary lymph node. No significant abnormalities were seen sonographically in the left axilla. IMPRESSION: SUSPICIOUS OF MALIGNANCY The possible 1.2 cm x 0.5 cm x 1 cm wider than tall mass in the left breast at 12 o'clock middle depth is suspicious of malignancy. Given difficulty with patient to be positioned for imaging and limited mobility as well as this mass being somewhat difficult to visualize, a stereotactic biopsy is recommended to target suspicious calcifications seen on comparison mammographic evaluation. The normal lymph node in the left breast at 3 o'clock posterior depth is benign. Findings and recommendations were discussed via telephone with the patient by Dr. Jiang during today's examination. This exam was interpreted at Station ID: [id number]. Electronically Signed By: Erick Jiang M.D. aty/:01/27/2022 14:50:33 letter sent: Biopsy Required Ultrasound BI-RADS: 4 Suspicious for malignancy
--- NOTE | 2022-01-27 | DI.MG.S_ITS ---
BILATERAL DIGITAL DIAGNOSTIC MAMMOGRAM 3D/2D WITH ADDITIONAL VIEWS: 01/27/2022 CLINICAL: Additional evaluation requested from prior study. Comparison is made to exam dated: 12/06/2021 mammogram - [facility]. The tissue of both breasts is heterogeneously dense. This may lower the sensitivity of mammography. There is are benign lymph node in both breasts that is an incidental finding. The focal asymmetry in the right breast at 2 o'clock anterior depth is no longer seen and likely represented summation artifact. There are grouped coarse heterogeneous pleomorphic calcifications in the left breast central to the nipple middle depth. They appear to be associated with a focal asymmetry. No other significant masses or calcifications are seen in either breast. IMPRESSION: INCOMPLETE: NEEDS ADDITIONAL IMAGING EVALUATION The grouped coarse heterogeneous pleomorphic calcifications in the left breast central to the nipple middle depth are indeterminate. A targeted ultrasound of the left breasts is recommended and will be performed immediately following this exam. This exam was interpreted at Station ID: [id number]. NOTE: For mammograms, a report in lay terms will be sent to the patient. Approximately 15% of breast malignancies will not be visualized mammographically. In the management of a palpable breast mass, a negative mammogram must not discourage biopsy of a clinically suspicious lesion. Electronically Signed By: Erick Jiang M.D. aty/:01/27/2022 14:43:01 ACR BI-RADS Category 0: Incomplete 3340F
== END ==
PROVIDERS: PCP Internal Medicine; Referring Provider Family Medicine; Visit Provider Family Medicine
DX: R92.8 Other abnormal and inconclusive findings on diagnostic imaging of breast (principal); R92.1 Mammographic calcification found on diagnostic imaging of breast
CPT/HCPCS: 76642; 77066; G0279

== ENCOUNTER → 2022-02-02 15:17 | Outpatient (CLI) | payer MEDICARE, BC, SELFPAY ==
[2022-02-02 17:21] LABS: COVID19 -Nasal RAPID Negative (Negative)
== END ==
PROVIDERS: PCP Internal Medicine; Visit Provider Surgery
DX: Z20.822 Contact with and (suspected) exposure to COVID-19 (principal); Z01.812 Encounter for preprocedural laboratory examination
CPT/HCPCS: 87635; C9803

== ENCOUNTER 2022-02-04 07:28 | Day surgery (SDC) | payer MEDICARE, BC, SELFPAY ==
[2022-02-04] MEDS: LACTATED RINGERS 1,000 ML 84 ML IV (07:46)
[2022-02-04 07:56] VITALS: BP 154/95; PULSE 77; RESP 16; TEMP 36.4; O2SAT 100; BMI 35.4
--- NOTE | 2022-02-04 08:26 | P.HP_ITS ---
History of Present Illness History of Present Illness Date Patient Seen: 02/04/22 Time Patient Seen: 08:38 Chief complaint: SCREENING COLONOSCOPY Narrative: last colonoscopy over 10 years ago. No symptoms no family history Patient History Medical History Allergy-induced asthma Chronic RUQ pain Edema of lower extremity due to peripheral venous insufficiency Hypothyroidism Incontinence Surgical History History of neck surgery Status post NYLA-BSO Family & Social History Social History: household members spouse Tobacco & Substance use: Smoking Status Never smoker alcohol intake current alcohol intake frequency a few times a month Substance Use Type does not use Meds Home Medications and Allergies Home Medications Medication Instructions Recorded Confirmed Type triamcinolone acetonide 0.1 % 1 applic TOPICAL BID #15 g 08/25/21 02/04/22 Rx topical ointment levothyroxine 75 mcg tablet 75 mcg PO DAILY 02/04/22 02/04/22 History terbinafine HCl 250 mg tablet 250 mg PO DAILY 02/04/22 02/04/22 History Allergies Allergy/AdvReac Type Severity Reaction Status Date / Time clarithromycin [From BIAXIN] Allergy Mild Verified 02/04/22 08:12 clavulanic acid Allergy Unknown Verified 02/04/22 08:12 [From AUGMENTIN] Review of Systems Review of Systems ROS: Yes All systems reviewed with the patient and are negative except as otherwise documented Exam Vital Signs (past 8 hours): - 02/04/22 07:56 Temperature 97.6 F Pulse Rate 77 Respiratory Rate 16 Blood Pressure 154/95 H Pulse Oximetry 100 Oxygen Delivery Method Room Air Const General: cooperative and healthy appearing [facility] Head: normal to inspection, normocephalic and atraumatic Eyes General: appearance normal, both eyes and all related structures Sclera: sclerae normal Neck Neck: normal visual inspection and trachea midline Chest Chest: normal inspection of the chest Resp Effort & Inspection: normal respiratory effort and able to speak in complete sentences Cardio Rate: regular rate Rhythm: regular rhythm GI Inspection: normal to inspection Palpation: soft Skin General: turgor normal and atrophy Neuro General: patient alert, patient awake and patient oriented x3 Cognition: normal cognition Extrem General: full ROM Psych Appearance: grossly normal Mental Status: mental status grossly normal Affect: normal affect Attitude: cooperative Judgment: judgment good Assessment & Plan Assessment & Plan narrative: screening colonoscopy colonoscopy with moderate sedation COVID-19 COVID-19 status: Negative Time Spent With Patient Critical Care time: I spent a total of [] minutes of critical care time on this patient's care today; this time is exclusive of procedural time.
--- NOTE | 2022-02-04 08:42 | PM.OP.COLON ---
Operative Date/Time/Diagnoses Date of procedure: 02/04/22 Time of procedure: 08:42 Pre-op diagnosis: screening colonoscopy Post-op diagnosis: same Procedure & Clinicians Study performed: colonoscopy with moderated sedation Same procedure as scheduled: Yes Indications: screening for colon cancer Surgeon: Kerri Parr Procedure Notes SCOAP/Timeout: done Procedure in detail: Prep diagnosis: Colon cancer screening Postop diagnosis: Same Operative procedure: Colonoscopy with moderate sedation Surgeon: Lisette Parr MD Findings: Severe descending colon diverticulosis, no polyps identified. Bowel prep excellent Procedure: Patient placed in lateral position. Rectal exam performed showing normal tone no masses. Colonoscope inserted in the rectum advanced to ileocecal valve with minimal difficulty. Insufflation and extraction of the scope and the above findings. Retroflex was included. No rectal polyps or masses. Impression: Severe diverticulosis of the descending colon, no polyps identified. Plan repeat colonoscopy for screening purposes in 10 years unless otherwise indicated by change in clinical condition Sedation minutes: 13 Findings: divertiulosis and internal hemorrhoids Specimen(s): none sent Complications: none Impression: Severe diverticulosis of the descending colon Post-procedure Recommendations: Colonoscopy in 10 years Plan for aftercare: home Follow up: as needed Disposition: PACU
[2022-02-04] MEDS: MIDAZOLAM 5 MG/5 ML VIAL 8 MG IV (08:51)
[2022-02-04] MEDS: fentaNYL 250 MCG/5 ML INJ 150 MCG IV (08:51)
[2022-02-04 09:05] VITALS: BP 113/67; BP 140/50; PULSE 75; RESP 10; RESP 16; TEMP 36.3; O2SAT 95; O2SAT 97
[2022-02-04 09:10] VITALS: BP 118/71; PULSE 66; RESP 14; O2SAT 92
[2022-02-04 09:15] VITALS: BP 114/71; PULSE 67; RESP 14; O2SAT 94
[2022-02-04 09:20] VITALS: BP 119/68; PULSE 67; RESP 16; O2SAT 96
[2022-02-04 09:30] VITALS: BP 127/77; PULSE 60; RESP 15; O2SAT 96
== END 2022-02-04 09:55 | disposition home or self-care (01) ==
PROVIDERS: PCP Internal Medicine; Referring Provider Surgery; Visit Provider Surgery
PROC: 0DJD8ZZ Inspection of Lower Intestinal Tract, Via Natural or Artificial Opening Endoscopic (ICD-10-PCS; CPT 45378; principal; 2022-02-04 08:30)
DX: Z12.11 Encounter for screening for malignant neoplasm of colon (principal); K57.30 Diverticulosis of large intestine without perforation or abscess without bleeding
CPT/HCPCS: G0121; 99152; J2250; J3010

== ENCOUNTER 2022-02-06 18:52 | Emergency (ER) | payer MEDICARE, BC, SELFPAY ==
[2022-02-06 19:02] VITALS: PULSE 76; RESP 22; TEMP 36.7; O2SAT 100
[2022-02-06 19:24] LABS: Add Manual Diff / Slide Review NO; Basophils Absolute Auto 100 /uL (0-100); Basophils Percent Auto 0.7 % (0-2); Eosinophils Absolute Auto 100 /uL (0-450); Eosinophils Percent Auto 1.6 % (2-4); Hematocrit 38.4 % (36-46); Lymphocytes Absolute Auto 1600 /uL (1100-4500); Lymphocytes Percent Auto 20.5 % (25-40); Mean Corpuscular Hemoglobin 29.2 PG (26-34); Monocytes Absolute Auto 800 /uL (0-900); Monocytes Percent Auto 10.2 % (3-14); Neutrophils Absolute Auto 5300 /uL (1500-7000); Platelet Count 259 X10^3/uL (150-400); Red Blood Cell Count 4.47 X10^6/uL (4.0-5.2); Red Cell Distribution Width 13.7 % (11.6-14.8); White Blood Cell Count 7.8 X10^3/uL (4.5-11.0)
[2022-02-06 19:31] LABS: Alanine Aminotransferase 21 IU/L (<35); Albumin 4.5 g/dL (3.5-5.0); Albumin Globulin Ratio 1.3 (1.0-2.8); Alkaline Phosphatase 112 U/L (38-126); Aspartate Aminotransferase 24 IU/L (14-36); BUN Creatinine Ratio 30.9 (6-22); Bilirubin Total 0.2 mg/dL (0.2-1.3); Blood Urea Nitrogen 17 mg/dL (7-17); Carbon Dioxide 27 mmol/L (22-32); Chloride 107 mmol/L (98-107); Estimated Glomerular Filt Rate > 60 mL/min (>60); Globulin 3.6 g/dL (1.7-4.1); Glucose 106 mg/dL (80-110); HEMOLYSIS < 15 (0-50); Lipase 68 U/L (23-300); Potassium 3.7 mmol/L (3.4-5.1); Sodium 142 mmol/L (137-145); Total Protein 8.1 g/dL (6.3-8.2)
[2022-02-06 21:30] VITALS: BP 181/87; PULSE 75; RESP 16; O2SAT 100
--- NOTE | 2022-02-06 21:44 | ED_ITS ---
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 She has been having increasing loose stools all week to the point that she is having occasional fecal incontinence. She has some mild right-sided discomfort. She had a previously scheduled routine colonoscopy for Monday that was entirely unremarkable with the exception for marked diverticulosis without diverticulitis appreciated. She notes that the diarrhea preceded the bowel prep at and since the bowel prep has continued. She states that she has watery nonbloody stool with eating or drinking anything. She is not orthostatic does not complain of fevers has not had any bloody stools is not vomiting. No palpitations or chest pain. Related Data Home Medications Medication Instructions Recorded Confirmed levothyroxine 75 mcg tablet 75 mcg PO DAILY 02/04/22 02/04/22 terbinafine HCl 250 mg tablet 250 mg PO DAILY 02/04/22 02/04/22 Previous Rx's Medication Instructions Recorded triamcinolone acetonide 0.1 % 1 applic TOPICAL BID #15 g 08/25/21 topical ointment Allergies Allergy/AdvReac Type Severity Reaction Status Date / Time clarithromycin [From BIAXIN] Allergy Mild Verified 02/04/22 08:12 clavulanic acid Allergy Unknown Verified 02/04/22 08:12 [From AUGMENTIN] Review of Systems Review of Systems Narrative: Remainder of complete review of systems is otherwise unremarkable except for that included in the HPI. Patient History Medical History Allergy-induced asthma Chronic RUQ pain Edema of lower extremity due to peripheral venous insufficiency Hypothyroidism Incontinence Surgical History History of neck surgery Status post [facility] Social History household members: spouse Smoking Status: Never smoker alcohol intake: current Smoking Status: Never smoker alcohol intake frequency: a few times a month Substance Use Type: does not use Exam Initial Vital Signs Initial Vital Signs: Vital Signs Temperature 98.0 F 02/06/22 19:02 Pulse Rate 76 02/06/22 19:02 Respiratory Rate 22 02/06/22 19:02 Pulse Oximetry 100 02/06/22 19:02 General: Healthy appearing, in no acute distress. Able to give a complete and coherent history. Well-nourished well-developed HEENT: Moist mucous membranes, normal sclera with reactive pupils, Respiratory: Lungs are clear to auscultation, no wheezing no rales no rhonchi. Full and symmetrical air movement Cardiac: Regular rate and rhythm no murmurs no bruits Abdomen: Soft, mild mid abdominal tenderness without rebound or guarding, good bowel tones, no flank pain Skin: Warm and dry, no rashes Neurologic: Grossly neurologically intact with no obvious asymmetries or abnormalities Extremities: No trauma, well perfused Psych: Cooperative, appropriate insight and affect Course Orders Ordered: ED Orders 02/06/22 21:57 CT abdomen pelvis w con Stat Discontinued Medications Acetaminophen (Acetaminophen 325 Mg Tablet) 975 mg PO NOW ONE Stop: 02/06/22 23:26 Last Admin: 02/06/22 23:29 Dose: 975 mg Documented by: ROBERT Loperamide HCl (Loperamide 2 Mg Capsule) 4 mg PO NOW ONE Stop: 02/06/22 23:02 Last Admin: 02/06/22 23:07 Dose: 4 mg Documented by: ROBERT Vital Signs Vital signs: Vital Signs - 8 hr 02/06/22 21:30 02/06/22 22:31 02/06/22 23:00 Pulse Rate 75 72 64 Respiratory Rate 16 Blood Pressure 181/87 H Pulse Oximetry 100 100 99 02/06/22 23:12 Pulse Rate 76 Respiratory Rate Blood Pressure 188/88 H Pulse Oximetry 99 Medical Decision Making Lab Data Result diagrams: 02/06/22 19:13 02/06/22 19:13 Labs: Lab Results 02/06/22 02/06/22 Range/Units 19:13 19:13 WBC 7.8 (4.5-11.0) X10^3/uL RBC 4.47 (4.0-5.2) X10^6/uL Hgb 13.0 (12.0-16.0) g/dL Hct 38.4 (36-46) % MCV 86.0 (80-100) fL MCH 29.2 (26-34) PG MCHC 34.0 (30-36) % RDW 13.7 (11.6-14.8) % Plt Count 259 (150-400) X10^3/uL Neut % (Auto) 67.0 (50-75) % Lymph % (Auto) 20.5 L (25-40) % Mora % (Auto) 10.2 (3-14) % Eos % (Auto) 1.6 L (2-4) % Baso % (Auto) 0.7 (0-2) % Neut # (Auto) 5300 (9869-3774) /uL Lymph # (Auto) 1600 (8656-5652) /uL Mora # (Auto) 800 (0-900) /uL Eos # (Auto) 100 (0-450) /uL Baso # (Auto) 100 (0-100) /uL Sodium 142 (137-145) mmol/L Potassium 3.7 (3.4-5.1) mmol/L Chloride 107 (98-107) mmol/L Carbon Dioxide 27 (22-32) mmol/L BUN 17 (7-17) mg/dL Creatinine 0.55 (0.52-1.04) mg/dL Estimated GFR > 60 (>60) mL/min BUN/Creatinine Ratio 30.9 H (6-22) Glucose 106 (80-110) mg/dL Calcium 9.0 (8.4-10.2) mg/dL Total Bilirubin 0.2 (0.2-1.3) mg/dL AST 24 (14-36) IU/L ALT 21 (<35) IU/L Alkaline Phosphatase 112 (38-126) U/L Total Protein 8.1 (6.3-8.2) g/dL Albumin 4.5 (3.5-5.0) g/dL Globulin 3.6 (1.7-4.1) g/dL Albumin/Globulin Ratio 1.3 (1.0-2.8) Lipase 68 (23-300) U/L Urine Dip Bedside Urine Glucose Negative Bedside Urine Bilirubin - Negative Bedside Urine Ketone - Negative Urine Specific [place] 1.025 Bedside Urine Occult Blood - Negative Bedside Urine pH 7 Bedside Urine Protein - Negative Bedside Urine Urobilinogen - Negative Bedside Urine Nitrite - Negative Bedside Urine Leukocytes - Negative Esterase Point of care testing: Urine Dip Bedside Urine Glucose Negative Bedside Urine Bilirubin - Negative Bedside Urine Ketone - Negative Urine Specific [place] 1.025 Bedside Urine Occult Blood - Negative Bedside Urine pH 7 Bedside Urine Protein - Negative Bedside Urine Urobilinogen - Negative Bedside Urine Nitrite - Negative Bedside Urine Leukocytes - Negative Esterase Imaging Data CT scan - abdomen/pelvis: Radiologist's Impression: FINDINGS:? Image quality:? Excellent.? ? Lung bases:? Right lower lobe perifissural 0.7 cm nodule appears stable in size compared to the prior studies.? There is mild peripheral scarring within the left lung base.? ? Heart:? Heart is normal in size. ? ? ABDOMEN: Liver:? No mass lesion. Gallbladder:? Within normal limits without calcified gallstones.? ? Biliary ducts:? No biliary ductal dilatation.? ? Pancreas:? Unremarkable.? ? Spleen:? Normal in size.? ? Adrenal Glands:? No adrenal nodules.? ? Kidneys and Ureters:? No hydronephrosis.? There is a small exophytic left renal cyst. ? ? Stomach and Bowel:? Stomach and small bowel loops are normal in caliber and wall thickness.? No evidence of appendicitis.? There is mild segmental wall thickening within the distal transverse and proximal descending colon spanning the splenic flexure suggestive of a mild colitis.? There is colonic diverticulosis without acute diverticulitis. Peritoneum:? No abnormal intraperitoneal fluid.? No free air.? ? Ventral Wall: ? No hernia.? Abdominal Nodes:? No retroperitoneal or mesenteric adenopathy by size criteria.? Vessels:? Aorta and inferior vena cava are normal in size.? ? PELVIS: Pelvic Organs:? The uterus is surgically absent.? ? Bladder:? Unremarkable.? ? Pelvic Nodes: No enlarged lymph nodes.? Miscellaneous: No inguinal hernias are seen. ? ? ? Bones:? Visualized osseous structures demonstrate no suspicious focal lesions. ? IMPRESSION:? ? 1. Mild segmental colonic wall thickening centered at the splenic flexure suggestive of a mild infectious or inflammatory colitis. ? 2. Colonic diverticulosis without acute diverticulitis. ? Dictated by: Peng Portillo M.D. on 02/06/2022 at 22:33? ?? MDM Narrative Additional Information: 66-year-old woman who has had over week of significant watery diarrhea. Lab work is unremarkable with normal renal function and electrolytes. She did have a routine screening colonoscopy on Monday that was equally unremarkable. CT scan today suggests mild segmental colonic wall thickening centered at the splenic flexure suggestive of a mild infectious or inflammatory colitis. With no abnormalities on colonoscopy this is more likely mildly infectious. She has had little p.o. intake today and is not able to produce a stool but she is sent home with outpatient lab studies to obtain a stool study. In the meantime I believe she is safe to try Imodium to help control the symptomatic diarrhea. Wi ll ask her to follow-up with her primary care doctor. Discharge Plan Departure Patient Disposition: Home Clinical Impression: Diarrhea Instructions: DI for Diarrhea and Traveler's Diarrhea -- Adult Activity Restrictions/Additional Instructions: Thank you for coming in this evening Your lab work was reassuring with no evidence of significant infection. Your CT scan was also equally reassuring. There was some mild segmental colonic wall thickening from the splenic flexure that does suggest of mild infectious diarrhea. I have given you outpatient lab work to bring back a stool sample so that we can check further. In the meantime, I believe it is safe for you to use Imodium to help slow the diarrhea. If you have worsening symptoms, increasing abdominal pain, notice any blood develop fevers or chills that it would be very appropriate to return to the ER Prescriptions: No Action triamcinolone acetonide 0.1 % ointment 1 applic topical BID Qty: 15 1RF levothyroxine 75 mcg tablet 75 mcg PO DAILY 0RF terbinafine HCl 250 mg tablet 250 mg PO DAILY 0RF Referrals: Everette Moreira MD [Primary Care Provider] -
--- NOTE | 2022-02-06 21:57 | DI.CT.S_ITS ---
PROCEDURE: CT ABDOMEN PELVIS W CON INDICATIONS: abdominal pain TECHNIQUE: After the administration of IV contrast, axial sections were acquired from the lung bases to the pubic symphysis. Coronal and sagittal reformats were performed. For radiation dose reduction, the following was used: automated exposure control, adjustment of mA and/or kV according to patient size. COMPARISON: [facility], ID, PET NECK TO MID THIGH, 05/22/2019, 9:39. [facility], CT, CT ABDOMEN PELVIS W CON, 03/21/2019, 15:22. FINDINGS: Image quality: Excellent. Lung bases: Right lower lobe perifissural 0.7 cm nodule appears stable in size compared to the prior studies. There is mild peripheral scarring within the left lung base. Heart: Heart is normal in size. ABDOMEN: Liver: No mass lesion. Gallbladder: Within normal limits without calcified gallstones. Biliary ducts: No biliary ductal dilatation. Pancreas: Unremarkable. Spleen: Normal in size. Adrenal Glands: No adrenal nodules. Kidneys and Ureters: No hydronephrosis. There is a small exophytic left renal cyst. Stomach and Bowel: Stomach and small bowel loops are normal in caliber and wall thickness. No evidence of appendicitis. There is mild segmental wall thickening within the distal transverse and proximal descending colon spanning the splenic flexure suggestive of a mild colitis. There is colonic diverticulosis without acute diverticulitis. Peritoneum: No abnormal intraperitoneal fluid. No free air. Ventral Wall: No hernia. Abdominal Nodes: No retroperitoneal or mesenteric adenopathy by size criteria. Vessels: Aorta and inferior vena cava are normal in size. PELVIS: Pelvic Organs: The uterus is surgically absent. Bladder: Unremarkable. Pelvic Nodes: No enlarged lymph nodes. Miscellaneous: No inguinal hernias are seen. Bones: Visualized osseous structures demonstrate no suspicious focal lesions. IMPRESSION: 1. Mild segmental colonic wall thickening centered at the splenic flexure suggestive of a mild infectious or inflammatory colitis. 2. Colonic diverticulosis without acute diverticulitis. Dictated by: Peng Portillo M.D. on 02/06/2022 at 22:33 Approved by: Peng Portillo M.D. on 02/06/2022 at 22:38
[2022-02-06 22:31] VITALS: PULSE 72; O2SAT 100
[2022-02-06 23:00] VITALS: PULSE 64; O2SAT 99
[2022-02-06] MEDS: LOPERAMIDE 2 MG CAPSULE 4 MG PO (23:07)
[2022-02-06 23:12] VITALS: BP 188/88; PULSE 76; O2SAT 99
[2022-02-06] MEDS: ACETAMINOPHEN 325 MG TABLET 975 MG PO (23:29)
== END 2022-02-06 23:35 | disposition home or self-care (01) ==
PROVIDERS: Emergency Provider Emergency Medicine; PCP Internal Medicine
DX: R19.7 Diarrhea, unspecified (principal)
CPT/HCPCS: 74177; 80053; 81003; 83690; 85025; 99283

== ENCOUNTER → 2022-02-10 07:48 | Outpatient (CLI) | payer MEDICARE, BC, SELFPAY ==
[2022-02-10 10:00] LABS: Campylobacter Not Detected (Not Detect); Clostridium difficile toxin AB Not Detected (Not Detect); Enteroaggregative E.coli Not Detected (Not Detect); Enteropathogenic E.coli Not Detected (Not Detect); Enterotoxigenic E.coli It/st Not Detected (Not Detect); Plesiomonsa shigelloides Not Detected (Not Detect); Salmonella Not Detected (Not Detect); Shiga-like toxin-prod E.coli Not Detected (Not Detect); Vibrio Not Detected (Not Detect); Vibrio cholerae Not Detected (Not Detect); Yersinia enterocolitica Not Detected (Not Detect)
[2022-02-10 10:01] LABS: Adenovirus F 40/41 Not Detected (Not Detect); Astrovirus Not Detected (Not Detect); Cryptosporidium Not Detected (Not Detect); Cyclospora cayetanensis Not Detected (Not Detect); Entamoeba histolytica Not Detected (Not Detect); Giardia lamblia Not Detected (Not Detect); Norovirus GI/GII Not Detected (Not Detect); Rotavirus A Not Detected (Not Detect); Sapovirus Not Detected (Not Detect); Shigella/Enteroinvasive E.coli Not Detected (Not Detect)
== END ==
PROVIDERS: PCP Internal Medicine; Referring Provider Emergency Medicine; Visit Provider Emergency Medicine
DX: R19.7 Diarrhea, unspecified (principal)
CPT/HCPCS: 87507

== ENCOUNTER → 2022-07-21 12:53 | Outpatient (CLI) | payer MEDICARE, BC, SELFPAY ==
--- NOTE | 2022-07-21 | DI.MRI.S_ITS ---
PROCEDURE: MR ANGIO NECK W CON INDICATIONS: Pulsatile tinnitus, right ear TECHNIQUE: Axial and sagittal TruFISP through the neck. Coronal dynamic MRA after the administration of contrast in the arterial and venous phases, with rotating 3-dimensional maximum intensity projection (MIP) reformats constructed from subtraction images. COMPARISON: None. FINDINGS: Image quality: This study is limited by venous contamination. Carotid system: Great vessels demonstrate a conventional anatomy as they arise from the aortic arch. The origins of the common carotid arteries appear normal. The calibers and courses of the common carotid arteries are likewise normal. The carotid bifurcations appear normal bilaterally. The internal carotid arteries are widely patent up to the [place] of [place]. Posterior circulation: The origins of the vertebral arteries are unremarkable. The more superior portions of the vertebral arteries demonstrate normal course. The left vertebral artery is noted to be dominant to the right. The vertebral arteries join to form a normal appearing basilar artery. Miscellaneous: Subclavian arteries are patent throughout. Pre-contrast images through the neck demonstrate no soft tissue abnormalities. IMPRESSION: Limited study, without a cause of pulsatile tinnitus identified. It is noted that the left vertebral artery is dominant to the right. Any quantitative measurements of stenosis were performed using NASCET criteria. Dictated by: Dwaine Sharma M.D. on 07/21/2022 at 13:17 Approved by: Dwaine Sharma M.D. on 07/21/2022 at 13:19
== END ==
PROVIDERS: PCP Internal Medicine; Referring Provider Otolaryngology; Visit Provider Otolaryngology
DX: H93.A1 Pulsatile tinnitus, right ear (principal); R51.9 Headache, unspecified
CPT/HCPCS: 70548; A9579

== ENCOUNTER → 2022-10-13 15:14 | Outpatient (CLI) | payer MEDICARE, BC, SELFPAY ==
--- NOTE | 2022-10-13 | DI.MRI.S_ITS ---
PROCEDURE: MR ANGIO HEAD WO CON INDICATIONS: Pulsatile tinnitus, right ear TECHNIQUE: Noncontrast axial 3-D [id number] MR angiogram, with 3-dimensional maximum intensity projection (MIP) reformats of the internal carotid arteries and posterior circulation then performed. COMPARISON: [facility], , MR ANGIO NECK W CON, 07/21/2022, 13:22. FINDINGS: Image quality: Excellent. Anterior circulation: Intracranial internal carotid arteries demonstrate normal size and intraluminal flow signal. The flow within the paired anterior cerebral arteries is normal and symmetric. The flow within the middle cerebral arteries is normal and symmetric. The anterior communicating artery is seen. No stenoses, occlusions, or aneurysms. Posterior circulation: The left V4 segment is normal. The distal right vertebral artery largely terminates in the right posterior inferior cerebellar artery. There is a normal appearing basilar artery. There is a prominent right posterior communicating artery seen, with an accompanying diminutive right P1 segment. This is attributed to a type origin of the right posterior cerebral artery, which is considered to be a normal developmental variant of typically no clinical consequence. The flow within the posterior cerebral arteries is normal and symmetric. No stenoses, occlusions, or aneurysms. IMPRESSION: No imaging explanation is found for this patient's presenting symptoms. No significant intracranial arterial abnormality is seen. [id number] developmental anomalies are incidentally noted. Dictated by: Dwaine Sharma M.D. on 10/13/2022 at 15:01 Approved by: Dwaine Sharma M.D. on 10/13/2022 at 15:02
== END ==
PROVIDERS: PCP Internal Medicine; Referring Provider Otolaryngology; Visit Provider Otolaryngology
DX: H93.A1 Pulsatile tinnitus, right ear (principal)
CPT/HCPCS: 70544

== ENCOUNTER 2023-01-15 12:25 | Emergency (ER) | payer MEDICARE, BC, SELFPAY ==
[2023-01-15 12:36] VITALS: BP 165/76; PULSE 72; RESP 18; TEMP 36.6; O2SAT 98; BMI 35.4
--- NOTE | 2023-01-15 12:41 | PC.NURSE ---
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
--- NOTE | 2023-01-15 12:59 | PC.NURSE ---
pt states she has a history of right knee problems. states she was told in the past she has meniscal tears and to be careful. 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 She states a few weeks ago after biking and rowing in the morning, she was hiking back down hill and twisted her knee. she has since been elevating and taking ibuprofen and feeling better. but yesterday she was lifting heavy objects while gardening and she twisted it again and fell to the ground. she denies any other injuries. states she did ice and elevate it and made an appointment with Ortho, which is in 10 days from now. she feels the pain is too extreme and she is unable to wait the 10 days for her appointment.
--- NOTE | 2023-01-15 13:04 | DI.RAD.S_ITS ---
PROCEDURE: XR KNEE RT 3V INDICATIONS: R knee pain TECHNIQUE: 3 views of the knee were acquired. COMPARISON: None. FINDINGS: Bones: No fractures or dislocations. No suspicious bony lesions. Mild patellofemoral joint space narrowing Soft tissues: No joint effusion. No suspicious soft tissue calcifications. IMPRESSION: Mild joint space narrowing. No fracture. Approved by: Donovan Messer M.D. on 01/15/2023 at 13:38
--- NOTE | 2023-01-15 13:13 | ED_ITS ---
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 She states that her right knee has been bothering her for couple weeks now but yesterday while she was helping move a heavy object with her she felt her right knee ?gave out? causing severe pain and causing her to fall to the floor. She did not injure her ankle, hip, hit her head, or her any other part of her body. She stating that it is very painful. Pain is minimize when she ?keeps it perfectly straight? most pain affects her when she puts any kind of rotational force on her right knee. Denies any numbness, decreased range of motion in the distal extremities, or any other concerning signs or symptoms. Related Data Home Medications Medication Instructions Recorded Confirmed levothyroxine 75 mcg tablet 75 mcg PO DAILY 02/04/22 02/04/22 terbinafine HCl 250 mg tablet 250 mg PO DAILY 02/04/22 02/04/22 Previous Rx's Medication Instructions Recorded triamcinolone acetonide 0.1 % 1 applic topical BID rash/itching 08/25/21 topical ointment #15 grams Allergies Allergy/AdvReac Type Severity Reaction Status Date / Time clarithromycin [From BIAXIN] Allergy Mild Verified 02/04/22 08:12 clavulanic acid Allergy Unknown Verified 02/04/22 08:12 [From AUGMENTIN] Review of Systems <Rainer Ho PA-C - Last Filed: 01/15/23 18:21> Review of Systems Narrative: GENERAL: Denies chills, fatigue, malaise, fever, sweats. HEENT: Denies sinus pain, ear pain, sore throat, difficulty swallowing, dizziness. RESPIRATORY: Denies dyspnea, cough, wheezing, hemoptysis, sputum. CARDIOVASCULAR: Denies chest pain, palpitations, orthopnea, edema, GASTROINTESTINAL: Denies nausea, vomiting, abdominal pain, diarrhea, constipation, melena. : Denies dysuria, frequency, incontinence, hematuria, urinary retention. MUSCULOSKELETAL: Reports right knee pain SKIN: Denies rash, skin lesions, or other NEUROLOGIC: Denies weakness, headache, numbness, change in speech, confusion, seizures, incoordination. PSYCHIATRIC: No concerning psychosocial issues. 12 point review of systems is negative except for those stated above Patient History <Rainer Ho PA-C - Last Filed: 01/15/23 18:21> Medical History Allergy-induced asthma Chronic RUQ pain Edema of lower extremity due to peripheral venous insufficiency Hypothyroidism Incontinence Surgical History History of neck surgery Status post NYLA-BSO Social History household members: spouse Smoking Status: Never smoker alcohol intake: current Smoking Status: Never smoker alcohol intake frequency: a few times a month Substance Use Type: does not use Exam <Rainer Ho PA-C - Last Filed: 01/15/23 18:21> Narrative Exam Narrative: GENERAL: Well-developed patient, in mild distress. HEAD: Atraumatic. Normocephalic. EYES: Pupils equal round and reactive. Extraocular motions intact. No scleral icterus. No injection or drainage. ENT: Nose without bleeding, purulent drainage. Throat without erythema, tonsillar hypertrophy or exudate. Airway patent. NECK: Trachea midline. Non tender EXTREMITIES: Moderate tenderness to palpation to the inferior anterior aspect of the knee, some tenderness to palpation to the inferior lateral aspect of the knee. Minimal pain with passive flexion and extension of the knee. Pain is worsened with varus movement of the knee. Neurovascularly intact distally. NEURO: AOx3. SKIN: No rash or erythema of visible areas Initial Vital Signs Initial Vital Signs: Vital Signs Temperature 97.8 F 01/15/23 12:36 Pulse Rate 72 01/15/23 12:36 Respiratory Rate 18 01/15/23 12:36 Blood Pressure 165/76 H 01/15/23 12:36 Pulse Oximetry 98 01/15/23 12:36 Oxygen Delivery Method Room Air 01/15/23 12:36 <Juanita Oconnell DO - Last Filed: 01/16/23 07:05> Initial Vital Signs Initial Vital Signs: Vital Signs Temperature 97.8 F 01/15/23 12:36 Pulse Rate 72 01/15/23 12:36 Respiratory Rate 18 01/15/23 12:36 Blood Pressure 165/76 H 01/15/23 12:36 Pulse Oximetry 98 01/15/23 12:36 Oxygen Delivery Method Room Air 01/15/23 12:36 Course <Rainer Ho PA-C - Last Filed: 01/15/23 18:21> Orders Ordered: Discontinued Medications Ibuprofen (Ibuprofen 400 Mg Tablet) 400 mg PO NOW ONE Stop: 01/15/23 14:45 Last Admin: 01/15/23 15:22 Dose: 400 mg Documented By: NR Vital Signs Vital signs: Vital Signs - 8 hr 01/15/23 12:36 01/15/23 15:02 Temperature 97.8 F Pulse Rate 72 59 L Respiratory Rate 18 Blood Pressure 165/76 H 154/73 H Pulse Oximetry 98 98 Oxygen Delivery Method Room Air Room Air <Juanita Oconnell DO - Last Filed: 01/16/23 07:05> Orders Ordered: Discontinued Medications Ibuprofen (Ibuprofen 400 Mg Tablet) 400 mg PO NOW ONE Stop: 01/15/23 14:45 Last Admin: 01/15/23 15:22 Dose: 400 mg Documented By: NR Vital Signs Vital signs: Vital Signs - 8 hr 01/15/23 12:36 01/15/23 15:02 Temperature 97.8 F Pulse Rate 72 59 L Respiratory Rate 18 Blood Pressure 165/76 H 154/73 H Pulse Oximetry 98 98 Oxygen Delivery Method Room Air Room Air MDM - Extremity Injury (Lower) <Rainer Ho PA-C - Last Filed: 01/15/23 18:21> Imaging Data Extremity x-ray #1: Radiologist's Impression: [address] [address] XRay Report Signed Patient: Jory Isaacs MR#: [id number] : 1955 Acct:[id number] Age/Sex: 67 / F Date of Service: 01/15/23 Loc: ED Accession Number: [id number] ?? Procedure: XR knee RT 3V Ordering Provider: Rainer Ho P.A-C PROCEDURE:? XR KNEE RT 3V ? INDICATIONS:? R knee pain ? TECHNIQUE:? 3 views of the knee were acquired.? ? COMPARISON:? None. ? FINDINGS:? ? Bones:? No fractures or dislocations.? No suspicious bony lesions.? Mild patellofemoral joint space narrowing ? Soft tissues:? No joint effusion.? No suspicious soft tissue calcifications.? ? ? IMPRESSION:? ? Mild joint space narrowing.? No fracture. ? ? ? Approved by: Donovan Messer M.D. on 01/15/2023 at 13:38? MDM Narrative Medical decision making narrative: MDM * differential diagnosis includes but not limited to knee fracture, soft tissue injury, ligament injury, meniscus injury, DVT * Prior records reviewed: Patient was seen here about a year ago for diarrhea. 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 Lab work unremarkable. CT scan was ordered which showed mild infectious or inflammatory colitis. Stool sample ordered and patient was recommended Imodium * My lab interpretation: None obtained * My imgaing interpretation: X-ray shows joint space narrowing but no acute fractures identified. * Clinical Decision Rules/Scores evaluated: None * Independent discussions with: None ED Course: This is a 67-year-old female presents emergency department due to acute on chronic right knee pain. X-ray was ordered which negative for fractures. Patient already has an orthopedist appointment established for 10 days from now. We will give her knee immobilizer and crutches to aid with ambulation and minimize movement. Recommended ibuprofen and Tylenol as needed for the pain. Neurovascularly intact distally. Shared Decision Making: Discussed plan with the patient who is comfortable with the plan. Social Considerations: None Disposition: Discharged to home Discharge Plan Departure Patient Disposition: Home Clinical Impression: Acute knee pain Instructions: DI for Knee Sprain Activity Restrictions/Additional Instructions: Thank you for coming to the [facility] Emergency Department today. As we discussed your x-ray shows no evidence of any acute fractures. Please keep your knee in the knee immobilizer use the crutches to help decrease your pain with ambulation until you are able to follow up with your orthopedist 10 days from now. I recommend ibuprofen and Tylenol as needed for the pain. I hope you feel better soon. Prescriptions: No Action triamcinolone acetonide 0.1 % ointment 1 applic topical BID Qty: 15 1RF levothyroxine 75 mcg tablet 75 mcg PO DAILY terbinafine HCl 250 mg tablet 250 mg PO DAILY Referrals: Everette Moreira MD [Primary Care Provider] - Stand Alone Forms: Patient Portal/API <Juanita Oconnell DO - Last Filed: 01/16/23 07:05> Cosign ED Attending Cosignature Attestation: I was immediately available in the department for consultation. Documentation has been reviewed.
[2023-01-15 15:02] VITALS: BP 154/73; PULSE 59; O2SAT 98
[2023-01-15] MEDS: IBUPROFEN 400 MG TABLET PO (15:22)
== END 2023-01-15 15:24 | disposition home or self-care (01) ==
PROVIDERS: Emergency Provider Physician Assistant Medical; PCP Internal Medicine
DX: M25.561 Pain in right knee (principal); X50.0XXA Overexertion from strenuous movement or load, initial encounter
CPT/HCPCS: 73562; 99283

== ENCOUNTER → 2023-02-15 13:07 | Outpatient (CLI) | payer MEDICARE, BC, SELFPAY ==
--- NOTE | 2023-02-15 13:09 | DI.MRI.S_ITS ---
PROCEDURE: MR KNEE RT WO CON INDICATIONS: Unspecified internal derangement of right knee TECHNIQUE: Noncontrast sagittal PD fast spin echo and T2 fast spin echo with fat saturation, sagittal 3-D FLASH with fat saturation; coronal T1 spin echo and PD fast spin echo with fat saturation, and axial PD fast spin echo with fat saturation through the knee. COMPARISON: None. FINDINGS: Image quality: Excellent. Menisci: Subtle signal abnormality involving posterior horn of medial meniscus extending to inferior articulating surface concerning for subtle oblique tear. The lateral meniscus is intact. There is torn posterior medial meniscal root ligament near its tibial insertion. Cruciate ligaments: The anterior and posterior cruciate ligaments appear intact. Medial structures: The medial collateral ligament appears thickened with surrounding soft tissue edema. The posterior oblique ligament, semimembranosus tendon insertions, oblique popliteal ligament, and meniscocapsular junction appear intact. Visualized portions of the pes anserinus tendons appear normal. No abnormal bursal fluid. Lateral structures: The lateral collateral ligament, long and short heads of the biceps femoris tendon appear intact. The popliteus tendon appears normal; the popliteofibular ligament appears intact. The posterosuperior and anteroinferior popliteomeniscal fascicles appear intact. The arcuate and fabellofibular ligaments appear intact, on either side of the lateral inferior geniculate artery. Iliotibial band appears normal. Anterior structures: Distal quadriceps tendinosis at its superior patellar insertion is seen. The patellar tendon is intact. Patellar alignment is normal. No femoral trochlear dysplasia or ventral trochlear prominence. No edema in the infrapatellar fat pad. Bones and cartilage: No bone marrow contusions or fractures. [id number] tricompartmental osteoarthritis and chondromalacia is noted more notably in medial femoral tibial compartment and medial portion of patellofemoral compartment. Joint space: There is small to moderate knee joint fluid. No Gaston's cyst. Normal appearing synovial plicae are incidentally noted. IMPRESSION: 1. Subtle oblique tear involving posterior horn of medial meniscus extending to inferior articulating surface. Torn posterior medial meniscal root ligament. No lateral meniscal tear. 2. The cruciate ligaments are intact. Low-grade MCL sprain. 3. Distal quadriceps tendinosis. Patellar tendon is intact. 4. Jekp-jv-dkhfcgeg tricompartmental osteoarthritis and chondromalacia more notably in medial femoral tibial compartment and medial portion of patellofemoral compartment. No fracture or dislocation. Small to moderate joint effusion, no gross loose bodies. Dictated by: Brigido Gonzalez M.D. on 02/15/2023 at 14:49 Approved by: Brigido Gonzalez M.D. on 02/15/2023 at 17:07
== END ==
PROVIDERS: PCP Internal Medicine; Referring Provider Physical Medicine & Rehabilitation Pain Medicine; Visit Provider Physical Medicine & Rehabilitation Pain Medicine
DX: S83.241A Other tear of medial meniscus, current injury, right knee, initial encounter (principal); M19.90 Unspecified osteoarthritis, unspecified site
CPT/HCPCS: 73721

== ENCOUNTER 2023-09-10 15:29 | Emergency (ER) | payer MEDICARE, BC, SELFPAY ==
[2023-09-10] VITALS (7 sets, daily range): BP systolic 133–144; BP diastolic 65–81; PULSE 70–86; RESP 18; TEMP 36.6; O2SAT 96–99; BMI 32.5
[2023-09-10 15:56] LABS: Add Manual Diff / Slide Review NO; Basophils Absolute Auto 0 /uL (0-100); Basophils Percent Auto 0.5 % (0-2); Eosinophils Absolute Auto 300 /uL (0-450); Eosinophils Percent Auto 3.4 % (2-4); Hematocrit 40.7 % (36-46); Hemoglobin 13.5 g/dL (12.0-16.0); Lymphocytes Absolute Auto 1100 /uL (1100-4500); Lymphocytes Percent Auto 11.8 % (25-40); Mean Corpuscular HGB Conc 33.3 % (30-36); Mean Corpuscular Hemoglobin 29.1 PG (26-34); Mean Corpuscular Volume 87.4 fL (80-100); Monocytes Absolute Auto 800 /uL (0-900); Monocytes Percent Auto 9.1 % (3-14); Neutrophils Absolute Auto 6700 /uL (1500-7000); Neutrophils Percent Auto 75.2 % (50-75); Platelet Count 276 X10^3/uL (150-400); Red Blood Cell Count 4.65 X10^6/uL (4.0-5.2); Red Cell Distribution Width 13.8 % (11.6-14.8); White Blood Cell Count 8.9 X10^3/uL (4.5-11.0)
[2023-09-10 16:02] LABS: Alanine Aminotransferase 28 IU/L (<35); Albumin 4.4 g/dL (3.5-5.0); Albumin Globulin Ratio 1.1 (1.0-2.8); Alkaline Phosphatase 104 U/L (38-126); Aspartate Aminotransferase 24 IU/L (14-36); BUN Creatinine Ratio 38.5 (6-22); Bilirubin Total 0.5 mg/dL (0.2-1.3); Blood Urea Nitrogen 20 mg/dL (7-17); Calcium 9.6 mg/dL (8.4-10.2); Carbon Dioxide 27 mmol/L (22-32); Chloride 106 mmol/L (98-107); Estimated Glomerular Filt Rate > 60 mL/min (>60); Globulin 3.9 g/dL (1.7-4.1); Glucose 98 mg/dL (80-110); HEMOLYSIS < 15 (0-50); Lipase 83 U/L (23-300); Potassium 3.8 mmol/L (3.4-5.1); Sodium 140 mmol/L (137-145); Total Protein 8.3 g/dL (6.3-8.2)
--- NOTE | 2023-09-10 16:24 | ED.ABDPAIN ---
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 She reports that today he is very nauseous without vomiting she is not fever or chills. The car ride over here hurt quite a bit. She is not yet taken anything for pain. She denies any chest pain or shortness of breath. She has a family history of ruptured abdominal aortic aneurysms but she has not personally herself had [address] in 2021 which did not show any aneurysm. Related Data Home Medications Medication Instructions Recorded Confirmed levothyroxine 75 mcg tablet 75 mcg PO DAILY 02/04/22 02/04/22 terbinafine HCl 250 mg tablet 250 mg PO DAILY 02/04/22 02/04/22 Previous Rx's Medication Instructions Recorded triamcinolone acetonide 0.1 % 1 applic topical BID rash/itching 08/25/21 topical ointment #15 grams metronidazole 500 mg tablet 500 mg PO Q8H 7 days #21 tabs 09/10/23 omeprazole 20 mg capsule,delayed 20 mg PO DAILY #30 caps 09/10/23 release sulfamethoxazole 800 1 tab PO BID 5 days #10 tabs 09/10/23 mg-trimethoprim 160 mg tablet (Bactrim DS) Allergies Allergy/AdvReac Type Severity Reaction Status Date / Time clarithromycin [From BIAXIN] Allergy Mild Verified 09/10/23 15:44 clavulanic acid Allergy Unknown Verified 09/10/23 15:44 [From AUGMENTIN] Patient History Medical History Chronic RUQ pain Incontinence Edema of lower extremity due to peripheral venous insufficiency Allergy-induced asthma Hypothyroidism Surgical History Status post NYLA-BSO History of neck surgery Social History household members: spouse Smoking Status: Never smoker alcohol intake: current Smoking Status: Never smoker alcohol intake frequency: a few times a month Substance Use Type: does not use Exam Initial Vital Signs Initial Vital Signs: Vital Signs Temperature 97.9 F 09/10/23 15:40 Pulse Rate 79 09/10/23 15:40 Respiratory Rate 18 09/10/23 15:40 Pulse Oximetry 98 09/10/23 15:40 Oxygen Delivery Method Room Air 09/10/23 15:40 GENERAL: Alert 68-year-old female appears uncomfortable HEENT: Head atraumatic,EOMI, pupils reactive, face symmetric, moist mucous membranes CARDIOVASCULAR: Regular rate and rhythm without murmurs, rubs or gallops. RESPIRATORY: Breath sounds equal bilaterally, no wheezes rales or rhonchi. ABDOMEN: Soft, tender epigastric pain mild positive Sequeira sign mild right lower quadrant pain : No CVA tenderness EXTREMITIES: Normal range of motion, no clubbing or edema. Neurovascularly intact NEUROLOGICAL: Alert and oriented x4.Normal gait and speech. SKIN: Warm, dry, no laceration, no petechiae, no rashes or lesions. Course Orders Ordered: ED Orders 09/10/23 15:42 Complete Blood Count AUTO DIFF Stat Comprehensive Metabolic Panel Stat Lipase Stat 09/10/23 16:24 CT abdomen pelvis w con Stat US abdomen limited Stat 09/10/23 18:01 Urine Culture Stat Urine Microscopic Stat Discontinued Medications Sodium Chloride (Normal Saline 0.9%) 1,000 mls @ 1,000 mls/hr IV BOLUS ONE Stop: 09/10/23 17:23 Last Infusion: 09/10/23 17:51 Dose: Infused Documented By: Admin: 09/10/23 16:32 Dose: 1,000 mls/hr Documented By: ANNE Ketorolac Tromethamine (Ketorolac 30 Mg/Ml Vial) 15 mg IV NOW ONE Stop: 09/10/23 16:25 Last Admin: 09/10/23 16:31 Dose: 15 mg Documented By: ANNE Metronidazole (Metronidazole 500 Mg Tablet) 500 mg PO NOW ONE Stop: 09/10/23 18:36 Last Admin: 09/10/23 18:54 Dose: 500 mg Documented By: ANNE Ondansetron HCl (Ondansetron 4 Mg/2 Ml Inj) 4 mg IV NOW ONE Stop: 09/10/23 16:25 Last Admin: 09/10/23 16:31 Dose: 4 mg Documented By: ANNE Trimethoprim/Sulfamethoxazole (Trimeth/Sulfa 160/800 (Ds) Tablet) 1 tab PO NOW ONE Stop: 09/10/23 18:36 Last Admin: 09/10/23 18:55 Dose: 1 tab Documented By: ANNE Vital Signs Vital signs: Vital Signs - 8 hr 09/10/23 15:40 09/10/23 15:49 09/10/23 15:49 Temperature 97.9 F Pulse Rate 79 71 Respiratory Rate 18 Blood Pressure 144/78 H Pulse Oximetry 98 99 Oxygen Delivery Method Room Air 09/10/23 16:00 09/10/23 16:00 09/10/23 16:39 Temperature Pulse Rate 70 86 Respiratory Rate Blood Pressure 143/81 H Pulse Oximetry 97 97 Oxygen Delivery Method 09/10/23 17:00 09/10/23 17:30 09/10/23 18:55 Temperature Pulse Rate 77 75 70 Respiratory Rate 18 Blood Pressure 133/65 Pulse Oximetry 98 96 99 Oxygen Delivery Method Room Air MDM - Abdominal Pain Lab Data 09/10/23 15:42 09/10/23 15:42 Labs: Lab Results 09/10/23 09/10/23 Range/Units 15:42 18:01 WBC 8.9 (4.5-11.0) X10^3/uL RBC 4.65 (4.0-5.2) X10^6/uL Hgb 13.5 (12.0-16.0) g/dL Hct 40.7 (36-46) % MCV 87.4 (80-100) fL MCH 29.1 (26-34) PG MCHC 33.3 (30-36) % RDW 13.8 (11.6-14.8) % Plt Count 276 (150-400) X10^3/uL Neut % (Auto) 75.2 H (50-75) % Lymph % (Auto) 11.8 L (25-40) % Davis % (Auto) 9.1 (3-14) % Eos % (Auto) 3.4 (2-4) % Baso % (Auto) 0.5 (0-2) % Neut # (Auto) 6700 (6137-0154) /uL Lymph # (Auto) 1100 (9425-7418) /uL Davis # (Auto) 800 (0-900) /uL Eos # (Auto) 300 (0-450) /uL Baso # (Auto) 0 (0-100) /uL Sodium 140 (137-145) mmol/L Potassium 3.8 (3.4-5.1) mmol/L Chloride 106 (98-107) mmol/L Carbon Dioxide 27 (22-32) mmol/L BUN 20 H (7-17) mg/dL Creatinine 0.52 (0.52-1.04) mg/dL Estimated GFR > 60 (>60) mL/min BUN/Creatinine Ratio 38.5 H (6-22) Glucose 98 (80-110) mg/dL Calcium 9.6 (8.4-10.2) mg/dL Total Bilirubin 0.5 (0.2-1.3) mg/dL AST 24 (14-36) IU/L ALT 28 (<35) IU/L Alkaline Phosphatase 104 (38-126) U/L Total Protein 8.3 H (6.3-8.2) g/dL Albumin 4.4 (3.5-5.0) g/dL Globulin 3.9 (1.7-4.1) g/dL Albumin/Globulin Ratio 1.1 (1.0-2.8) Lipase 83 (23-300) U/L Urine RBC None seen (0-5/HPF) Urine WBC None seen (0-5/HPF) Ur Squamous Epith Cells 0-1 /hpf (0-5/HPF) Urine Bacteria None seen (None) Point of care testing: Urine Dip Bedside Urine Glucose Negative Bedside Urine Bilirubin - Negative Bedside Urine Ketone +/- 5 Urine Specific [place] 1.015 Bedside Urine Occult Blood - Negative Bedside Urine pH 5.5 Bedside Urine Protein - Negative Bedside Urine Urobilinogen - Negative Bedside Urine Nitrite - Negative Bedside Urine Leukocytes - Negative Esterase Imaging Data CT scan - abdomen/pelvis: Radiologist's Impression: PROCEDURE: CT ABDOMEN PELVIS W CON INDICATIONS: right upper and lower pain TECHNIQUE: After the administration of oral and IV contrast, axial sections were acquired from the lung bases to the pubic symphysis. Coronal and sagittal reformats were performed. For radiation dose reduction, the following was used: automated exposure control, adjustment of mA and/or kV according to patient size. COMPARISON: [facility], CT, CT ABDOMEN PELVIS W CON, 03/21/2019, 15:22. [facility], US, US ABDOMEN LIMITED, 09/10/2023, 16:52. [facility], CT, CT ABDOMEN PELVIS W CON, 02/06/2022, 22:00. FINDINGS: Image quality: Excellent. Lung bases: Within the right lower lobe laterally, there is a subpleural nodule seen, as on series 5, image 9, measuring 7 mm. Heart: No significant findings. ABDOMEN: Liver: No solid mass. Gallbladder: There is a layering gallstone seen within the gallbladder, as on series 3, image 24. No additional CT findings of cholecystitis are seen. Biliary ducts: No biliary dilation. Pancreas: No ductal dilation. Spleen: Size is within normal limits. Adrenal Glands: No adrenal nodules. Kidneys and Ureters: No hydronephrosis. No solid mass. No complex renal cystic lesion which requires follow up. Stomach and Bowel: Normal colonic caliber, without significant wall thickening. A duodenal diverticulum can be seen involving the 4th portion of the duodenum, as on series 3, image 28. This duodenal diverticulum appears inflamed, surrounding inflammatory changes. Colonic diverticulosis is seen, without findings of active diverticulitis. No dilated loops of small bowel are seen. Peritoneum: No abnormal intraperitoneal fluid. No free air. Ventral Wall: No hernia. Abdominal Nodes: No retroperitoneal or mesenteric adenopathy by size criteria. Vessels: Aorta and inferior vena cava are normal in size. PELVIS: Pelvic Organs: This patient is status post hysterectomy. No adnexal masses are seen. Bladder: Unremarkable. Pelvic Nodes: No enlarged lymph nodes. Miscellaneous: No inguinal hernias are seen. Bones: Focal L5-S1 degenerative change is seen. Milder degenerative changes are seen elsewhere. IMPRESSION: There is a duodenal diverticulum seen, which appears inflamed. No alix findings of perforation or abscess can be seen. No free air or significant free fluid can be seen. There is a layering gallstone seen within the gallbladder, without additional CT findings of cholecystitis. Additional findings: 7 mm right lower lobe nodule, unchanged compared to 2019 and regarded to be benign. Hysterectomy Focal L5-S1 degenerative change Diverticulosis, without active diverticulitis Dictated by: Dwaine Sharma M.D. on 09/10/2023 at 16:12 US - abdomen: Radiologist's Impression: PROCEDURE: US ABDOMEN LIMITED INDICATIONS: ruq TECHNIQUE: Real-time focused scanning was performed of the abdomen, with image documentation. COMPARISON: None. FINDINGS: The liver is normal in size and demonstrates no suspicious lesions. No findings of gallstones or sludge are seen. The gallbladder wall is not thickened, measuring 3 mm or less. No specific pericholecystic fluid is seen. The sonographic Sequeira sign is negative. There is no biliary dilatation, the common bile duct measures 3 mm. No significant pancreatic abnormality is seen on these images. IMPRESSION: A cause of right upper quadrant pain is not seen by ultrasound. The gallbladder demonstrates a normal sonographic appearance. No biliary dilatation is seen. Dictated by: Dwaine Sharma M.D. on 09/10/2023 at 17:08 [facility] Narrative Medical decision making narrative: Patient is a year old female presents today with epigastric right upper quadrant pain ongoing for the last 3-4 days. On exam she is quite tender. Blood work has been reviewed she is no leukocytosis anemia electrolyte abnormality GERTRUDIS elevated bilirubin liver enzymes or lipase. Imaging ultrasound shows no cholecystitis or cholelithiasis, CT confirms inflamed duodenal diverticuli, there was concern about a gallstone however ultrasound does not show any cholelithiasis Discussion with patient about treatment plan. Inflamed duodenal diverticuli with intense pain seems reasonable to treat with antibiotics. She has allergy to clavulanate and does not want to take a for quinolone. She does agree to Bactrim and Flagyl. We also discussed taking omeprazole to help with some at decreasing acid and inflammation. Toradol did seem to help with pain. He is offered prescription for Zofran declines at this time. Discharge Plan Departure Patient Disposition: Home Clinical Impression: Diverticulitis Instructions: DI for Diverticulitis Activity Restrictions/Additional Instructions: *You have been diagnosed with diverticulitis *What to do: You do have an inflamed duodenal diverticuli at this time I think reasonable to treat for diverticulitis. I hope that antibiotics help make you feel better. Please advance diet as tolerated. Please stay hydrated. *Continue to take medications as directed Bactrim 1 tablet twice a day for 7 days Flagyl 500 mg times a day for 7 days Omeprazole 20 mg once daily *Follow up with your primary care provider in 2-3 days or call [phone] *Return to ER if you should have increasing pain confusion fever vomiting or any new, worsening or concerning symptoms Prescriptions: New sulfamethoxazole-trimethoprim [Bactrim DS] 800-160 mg tablet 1 tab PO BID 5 Days Qty: 10 0RF omeprazole 20 mg capsule,delayed release(DR/EC) 20 mg PO DAILY Qty: 30 0RF metronidazole 500 mg tablet 500 mg PO Q8H 7 Days Qty: 21 0RF No Action triamcinolone acetonide 0.1 % ointment 1 applic topical BID Qty: 15 1RF levothyroxine 75 mcg tablet 75 mcg PO DAILY terbinafine HCl 250 mg tablet 250 mg PO DAILY Referrals: Everette Moreira MD [Primary Care Provider] - Stand Alone Forms: Patient Portal/API
[2023-09-10] MEDS: ONDANSETRON 4 MG/2 ML INJ IV (16:31)
[2023-09-10] MEDS: KETOROLAC 30 MG/ML VIAL 15 MG IV (16:31)
[2023-09-10] MEDS: SODIUM CHLORIDE 0.9% 1,000 ML 1000 ML IV (16:32)
--- NOTE | 2023-09-10 17:58 | PC.NURSE ---
ambulatory to br in nad
--- NOTE | 2023-09-10 18:30 | PC.NURSE ---
dr. cole at bedside
[2023-09-10 18:31] LABS: Bacteria Urine None Seen; RBC Urine None Seen (0-5/HPF); Squamous Epithelial Cell Urine 0-1 /HPF (0-5/HPF); WBC Urine None Seen (0-5/HPF)
[2023-09-10] MEDS: metroNIDAZOLE 500 MG TABLET PO (18:54)
[2023-09-10] MEDS: TRIMETH/SULFA 160/800 (DS) TABLET 1 TAB PO (18:55)
== END 2023-09-10 18:59 | disposition home or self-care (01) ==
PROVIDERS: Emergency Provider Emergency Medicine; PCP Internal Medicine
DX: K57.92 Diverticulitis of intestine, part unspecified, without perforation or abscess without bleeding (principal)
CPT/HCPCS: 36415; 74177; 76705; 80053; 81003; 81015; 83690; 85025; 87086; 93010; 96361; 96374; 96375; 99284; J1885; J2405; Q9967

== ENCOUNTER → 2024-03-04 16:24 | Outpatient (CLI) | payer MEDICARE, BC, SELFPAY ==
--- NOTE | 2024-03-04 16:25 | DI.MRI.S_ITS ---
PROCEDURE: MR HAND RT WO CON INDICATIONS: Raynaud's syndrome without gangrene TECHNIQUE: Noncontrast coronal T1 spin echo and T2 fast spin echo with fat saturation, axial proton density fast spin echo and T2 fast spin echo with fat saturation, sagittal T1 spin echo and STIR through the hand and fingers. COMPARISON: [facility] [place], CR, XR FINGER(S) RIGHT, 01/08/2021, 14:52. FINDINGS: Image quality: Excellent Bones: Severe degenerative change of the 1st carpometacarpal joint with subchondral cystic changes and marrow edema. Additional multifocal T2 hyperintensity changes in the carpal bones, most pronounced at the trapezoid, the capitate, and the proximal scaphoid, which may be degenerative versus erosion. Mild subchondral cystic changes versus erosions at the distal ulna. Moderate effusion within the 2nd metacarpal phalangeal joint. No associated marrow edema. Subchondral cystic changes versus erosion in the 3rd metacarpal head, favoring degenerative. Soft tissue edema about the 3rd distal interphalangeal joint. There is marrow edema about the 3rd distal interphalangeal joint, nonspecific and may be degenerative. No confluent T1 hypointensity to suggest osteomyelitis. Small subchondral cystic changes versus erosion in the 5th metacarpal head. 6 mm ganglion cyst ulnar and dorsal to the 1st metacarpal head. No acute fracture. Ligaments: The accessory in the collateral ligaments are grossly unremarkable. The collateral ligaments at the 3rd distal phalangeal joint is not well evaluated given associated soft tissue edema. Extensor apparatus: The central slips insert normally on the middle phalangeal base. The conjoint and terminal tendons insert normally on the distal phalangeal bases. More proximal portions of the extensor tendons also appear normal. Flexor apparatus: The flexor digitorum superficialis and profundus tendons both appear intact. All annular and cruciform pulleys appear intact, without adjacent soft tissue edema. Soft tissues: Visualized muscles demonstrate normal bulk and internal signal. No intramuscular masses identified. No ganglion cysts. IMPRESSION: 1. Severe degenerative change of the 1st carpometacarpal joint. 2. Multifocal subchondral cystic changes versus erosions of additional carpal bones, the metacarpal heads, and the distal ulna, which may be degenerative versus rheumatoid arthritis . Recommend clinical correlation. 3. Soft tissue edema about the 3rd distal interphalangeal joint with associated marrow edema, nonspecific in the be degenerative. 4. 6 mm ganglion cyst about the 1st metacarpal head. Dictated by: Anayeli Estes M.D. on 03/05/2024 at 19:59 Approved by: Anayeli Estes M.D. on 03/05/2024 at 20:11
== END ==
PROVIDERS: PCP Internal Medicine; Referring Provider Internal Medicine; Visit Provider Internal Medicine
DX: M65.849 Other synovitis and tenosynovitis, unspecified hand (principal); R76.8 Other specified abnormal immunological findings in serum; I73.00 Raynaud's syndrome without gangrene; M67.431 Ganglion, right wrist; R60.0 Localized edema
CPT/HCPCS: 73218